=== PATIENT | female | born 1970 | race Caucasian/White ===

== ENCOUNTER → 2019-11-17 17:00 | Outpatient (BNVA) | payer MEDICARE, MEDICAID, SELFPAY | PROVIDERS: Family Provider Nurse Practitioner; PCP Nurse Practitioner; Visit Provider Nurse Practitioner | DX: E11.65 Type 2 diabetes mellitus with hyperglycemia (principal); I10 Essential (primary) hypertension; M45.9 Ankylosing spondylitis of unspecified sites in spine; J30.89 Other allergic rhinitis; M81.8 Other osteoporosis without current pathological fracture | CPT/HCPCS: 80053; 81003; 83036 ==

== ENCOUNTER → 2019-12-09 15:46 | Outpatient (BNVA) | payer MEDICARE, MEDICAID, SELFPAY | PROVIDERS: Family Provider Nurse Practitioner; PCP Nurse Practitioner; Visit Provider Internal Medicine Rheumatology | DX: M45.9 Ankylosing spondylitis of unspecified sites in spine (principal); Z79.899 Other long term (current) drug therapy; I10 Essential (primary) hypertension; E11.65 Type 2 diabetes mellitus with hyperglycemia; M19.90 Unspecified osteoarthritis, unspecified site; M06.4 Inflammatory polyarthropathy; Z79.4 Long term (current) use of insulin; K50.90 Crohn's disease, unspecified, without complications; Z87.891 Personal history of nicotine dependence; Z79.52 Long term (current) use of systemic steroids | CPT/HCPCS: 36415; 85025; 85651; 86140; 99214 ==

== ENCOUNTER → 2019-12-09 16:29 | Outpatient (BNVA) | payer MEDICARE, MEDICAID, SELFPAY | PROVIDERS: Family Provider Nurse Practitioner; PCP Nurse Practitioner; Visit Provider Internal Medicine Rheumatology | DX: I10 Essential (primary) hypertension (principal); E11.65 Type 2 diabetes mellitus with hyperglycemia; M19.90 Unspecified osteoarthritis, unspecified site; M45.9 Ankylosing spondylitis of unspecified sites in spine; Z51.81 Encounter for therapeutic drug level monitoring; M06.4 Inflammatory polyarthropathy; Z09 Encounter for follow-up examination after completed treatment for conditions other than malignant neoplasm; K50.90 Crohn's disease, unspecified, without complications | CPT/HCPCS: 85025 ==

== ENCOUNTER → 2020-05-17 14:28 | Outpatient (BNVA) | payer MEDICARE, MEDICAID, SELFPAY | PROVIDERS: Family Provider Nurse Practitioner; PCP Nurse Practitioner; Visit Provider Internal Medicine Rheumatology | DX: Z79.899 Other long term (current) drug therapy (principal) | CPT/HCPCS: 36415; 80076; 82565; 85025; 85651; 86140 ==

== ENCOUNTER → 2020-05-25 17:21 | Outpatient (BNVA) | payer MEDICARE, MEDICAID, SELFPAY | PROVIDERS: Family Provider Nurse Practitioner; PCP Nurse Practitioner; Visit Provider Nurse Practitioner | DX: E11.65 Type 2 diabetes mellitus with hyperglycemia (principal); Z79.4 Long term (current) use of insulin; J30.89 Other allergic rhinitis; M45.9 Ankylosing spondylitis of unspecified sites in spine; M81.8 Other osteoporosis without current pathological fracture; I10 Essential (primary) hypertension; E55.9 Vitamin D deficiency, unspecified; M51.36 Other intervertebral disc degeneration, lumbar region; K50.919 Crohn's disease, unspecified, with unspecified complications; T38.0X5A Adverse effect of glucocorticoids and synthetic analogues, initial encounter | CPT/HCPCS: 80053; 81000; 82043; 82306; 82310; 83036; 83970; 84439; 84443; 84481 ==

== ENCOUNTER → 2020-05-26 14:32 | Outpatient (BNVA) | payer MEDICARE, MEDICAID, SELFPAY | PROVIDERS: Family Provider Nurse Practitioner; PCP Nurse Practitioner; Visit Provider Internal Medicine Cardiovascular Disease | DX: I10 Essential (primary) hypertension (principal); R07.9 Chest pain, unspecified | CPT/HCPCS: 83880 ==

== ENCOUNTER → 2020-06-02 13:52 | Outpatient (BNVA) | payer MEDICARE, MEDICAID, SELFPAY | PROVIDERS: Family Provider Nurse Practitioner; PCP Nurse Practitioner; Visit Provider Internal Medicine | DX: E11.65 Type 2 diabetes mellitus with hyperglycemia (principal); E11.40 Type 2 diabetes mellitus with diabetic neuropathy, unspecified; E11.29 Type 2 diabetes mellitus with other diabetic kidney complication; I10 Essential (primary) hypertension; R80.9 Proteinuria, unspecified; D89.9 Disorder involving the immune mechanism, unspecified; E04.1 Nontoxic single thyroid nodule; E78.5 Hyperlipidemia, unspecified | CPT/HCPCS: 99204 ==

== ENCOUNTER → 2020-06-16 15:05 | Outpatient (BNVA) | payer MEDICARE, MEDICAID, SELFPAY | PROVIDERS: Family Provider Nurse Practitioner; PCP Nurse Practitioner; Visit Provider Internal Medicine Rheumatology | DX: M45.9 Ankylosing spondylitis of unspecified sites in spine (principal); K50.919 Crohn's disease, unspecified, with unspecified complications; Z79.899 Other long term (current) drug therapy; E11.40 Type 2 diabetes mellitus with diabetic neuropathy, unspecified; E11.65 Type 2 diabetes mellitus with hyperglycemia; Z15.89 Genetic susceptibility to other disease; Z79.4 Long term (current) use of insulin; Z79.52 Long term (current) use of systemic steroids | CPT/HCPCS: 99214 ==

== ENCOUNTER → 2020-07-20 14:55 | Outpatient (BNVA) | payer MEDICARE, MEDICAID, SELFPAY | PROVIDERS: Family Provider Nurse Practitioner; PCP Nurse Practitioner; Visit Provider Internal Medicine | DX: D89.9 Disorder involving the immune mechanism, unspecified (principal); E04.1 Nontoxic single thyroid nodule; E11.29 Type 2 diabetes mellitus with other diabetic kidney complication; E11.40 Type 2 diabetes mellitus with diabetic neuropathy, unspecified; E11.65 Type 2 diabetes mellitus with hyperglycemia; Z79.4 Long term (current) use of insulin; E78.2 Mixed hyperlipidemia; R80.9 Proteinuria, unspecified | CPT/HCPCS: 99214 ==

== ENCOUNTER → 2020-07-23 09:59 | Outpatient (BNVA) | payer MEDICARE, MEDICAID, SELFPAY ==
[2020-07-23 10:08] VITALS: BP 152/87; PULSE 79; RESP 16; TEMP 36.8; O2SAT 98
[2020-07-23] MEDS: acetaminophen 500 mg Tablet 1000 MG PO (10:14)
[2020-07-23] MEDS: diphenhydrAMINE 50 mg/mL SDV 1mL 25 MG IVP (10:35)
--- NOTE | 2020-07-23 10:49 | PC.NURSE ---
Discussed medication and increased risk of infection. pt understands risks. Verbalized concerns about reaction. Infusion started at 1048 at 125ml/hr for 15 min due to pt concern.
[2020-07-23 10:53] VITALS: BMI 40.1
--- NOTE | 2020-07-23 11:05 | PC.NURSE ---
1100 Rate increased to 175ml/hr. Pt tolerating well. Dr. Lyon came in infusion room. Met with pt.
--- NOTE | 2020-07-23 11:34 | PC.NURSE ---
1132 Infusion complete. Saline flush. Pt states she feels fine. Will continue to monitor.
[2020-07-23 11:45] VITALS: BP 144/83; PULSE 64; RESP 16; O2SAT 97
== END ==
PROVIDERS: Family Provider Nurse Practitioner; PCP Nurse Practitioner; Visit Provider Internal Medicine
DX: M45.9 Ankylosing spondylitis of unspecified sites in spine (principal)
CPT/HCPCS: 80076; 82565; 85025; 85651; 86140; 96365; 96375; J1200; J1602; J2920

== ENCOUNTER 2020-09-10 09:07 | Outpatient (CLI) | payer MEDICARE, MEDICAID, SELFPAY ==
[2020-09-10 09:18] VITALS: BP 170/90; PULSE 79; RESP 16; TEMP 36.2; O2SAT 95
[2020-09-10] MEDS: acetaminophen 500 mg Tablet 1000 MG PO (09:40)
[2020-09-10] MEDS: diphenhydrAMINE 50 mg/mL SDV 1mL 25 MG IVP (09:40)
--- NOTE | 2020-09-10 09:58 | PC.NURSE ---
labs obtained with IV start.
[2020-09-10 10:50] VITALS: BP 147/82; PULSE 65; RESP 16; O2SAT 96
== END 2020-09-10 09:08 | disposition home or self-care (01) ==
LOC: RHEOACUTE 09:08
PROVIDERS: Family Provider Nurse Practitioner; PCP Nurse Practitioner; Visit Provider Internal Medicine Rheumatology
DX: M45.9 Ankylosing spondylitis of unspecified sites in spine (principal); Z79.899 Other long term (current) drug therapy
CPT/HCPCS: 80076; 82565; 85025; 85651; 86140; 96365; 96375; J1200; J1602; J2920

== ENCOUNTER → 2020-10-07 14:49 | Outpatient (BNVA) | payer MEDICARE, MEDICAID, SELFPAY | PROVIDERS: Family Provider Nurse Practitioner; PCP Nurse Practitioner; Visit Provider Internal Medicine Rheumatology | DX: M45.9 Ankylosing spondylitis of unspecified sites in spine (principal); K50.919 Crohn's disease, unspecified, with unspecified complications; Z15.89 Genetic susceptibility to other disease; Z79.899 Other long term (current) drug therapy; Z79.52 Long term (current) use of systemic steroids; M06.4 Inflammatory polyarthropathy; Z87.891 Personal history of nicotine dependence | CPT/HCPCS: 99214 ==

== ENCOUNTER → 2020-10-19 13:58 | Outpatient (BNVA) | payer MEDICARE, MEDICAID, SELFPAY | PROVIDERS: Family Provider Nurse Practitioner; PCP Nurse Practitioner; Visit Provider Internal Medicine | DX: D89.9 Disorder involving the immune mechanism, unspecified (principal); E04.1 Nontoxic single thyroid nodule; E11.29 Type 2 diabetes mellitus with other diabetic kidney complication; R80.9 Proteinuria, unspecified; E11.40 Type 2 diabetes mellitus with diabetic neuropathy, unspecified; E11.65 Type 2 diabetes mellitus with hyperglycemia; Z79.4 Long term (current) use of insulin; E78.2 Mixed hyperlipidemia | CPT/HCPCS: 99214 ==

== ENCOUNTER 2020-10-25 07:29 | Emergency (ER) | payer MEDICARE, MEDICAID, SELFPAY ==
[2020-10-25 07:36] VITALS: BP 158/84; PULSE 85; RESP 22; TEMP 36.4; O2SAT 98; BMI 39.5
--- NOTE | 2020-10-25 07:42 | XRR_ITS ---
PROCEDURE INFORMATION: Exam: XR Chest, 1 View Exam date and time: 10/25/2020 7:58 AM Age: 49 years old Clinical indication: Shortness of breath; Chest pain; Additional info: Cp/sob TECHNIQUE: Imaging protocol: XR of the chest Views: 1 view. COMPARISON: CR Chest 2 views* [id number] 03/05/2018 2:20 PM FINDINGS: Tubes, catheters and devices: Neurostimulator wires project on the midthoracic spine. Lungs: Unremarkable. No consolidation. Pleural space: Unremarkable. No pleural effusion. No pneumothorax. Heart/Mediastinum: Unremarkable. No cardiomegaly. Bones/joints: Unremarkable. XR/XR chest 1V portable [id number] IMPRESSION: No significant cardiopulmonary abnormality.
--- NOTE | 2020-10-25 07:42 | ECG_ITS ---
[facility] Test Date: 2020-10-25 Pat Name: Estela Moise Department: Room: Gender: Female Lead Warehouse Associate: : 1970 Requested By: Mary Mejia Order Number: [id number] Lloyd MD: Akash Salvador M.D. Measurements Intervals [place] Rate: 78 P: 41 RI: 164 QRS: 18 QRSD: 75 T: 29 QT: 347 QTc: 395 Interpretive Statements SINUS RHYTHM MODERATE ST DEPRESSION [0.05+ mV ST DEPRESSION] No previous ECG available for comparison Electronically Signed On 10-25-2020 13:05:24 BUSINESS PROCESS LEAD by Akash Salvador M.D. [id number]
--- NOTE | 2020-10-25 07:56 | W.ED.CHESTPA ---
HPI - Chest Pain General: Chief Complaint: Chest Pain Stated Complaint: CHEST PAINS, SOB Time Seen by Provider: 10/25/20 07:41 Source: patient and family Mode of arrival: ambulatory Limitations: no limitations History of Present Illness: HPI narrative: 49-year-old female patient presents to the emergency department due to acute onset of chest pain that started this morning at 5 AM. She reports woke at 5 AM, got up to let the dog out, developed sudden onset of chest pain, shortness of breath. Reports pain started in the central chest radiated to the neck and to her head causing her to have a headache. She reports blood pressure at time of onset was 189/111. States on the way to the hospital, symptoms resolved, blood pressure now 158/84. She reports still has, twinge feeling in her chest, does not state as pain. She denies nausea vomiting, denies diaphoresis. States over the past few months, blood pressure medications have been changed by her interactive media marketing strategist, Dr. Kim, patient reports inability to tolerate new prescription of isosorbide secondary to headache development. Has history of chest pain with shortness of breath episodes in the past. Denies history of cardiac disease. Continues with tobacco abuse. Patient reports increased episodes of swelling by the end of the day to the lower extremities, resolves with elevation of the legs and upon awakening in the morning. States blood sugar this morning was 259. She is insulin-dependent diabetic. Positive family history of heart disease, grandparents on both sides. Lexiscan stress test completed 02/09/2017 with LVEF 79%, left ventricular volume normal, small area of persistent decreased tracer uptake in the atrial inferior wall region most likely representing attenuation artifact. [facility] is to be scheduled for outpatient stress test by cardiology test has not been completed. MD complaint: chest pain Pertinent past history: other (Hypertension) Onset (ago): day(s) (This morning) Timing of current episode: episodic and now resolved Prior episodes: Yes Onset: during exertion Pain location: substernal Pain radiation: jaw/teeth and other (Headache) Severity: moderate Pain scale (0-10): 3 Quality: heaviness and fullness Relieving factors: rest Context: new medications Associated symptoms: Reports leg edema; Deny abdominal pain, diaphoresis, dyspnea, fever(s), nausea, palpitations, syncope or vomiting Treatment prior to arrival: none Review of Systems General: Reports: 10 or more systems reviewed and unremarkable except in HPI and below Const: Denies: fever(s), chills, change in appetite, fatigue, malaise or diaphoresis Eyes: Denies: blurry vision, eye discomfort or eye redness ENMT: Denies: throat pain, uvular edema, dental pain, disequilibrium, nasal discharge or nasal congestion Card: Reports: chest pain, swelling of feet/ankles (Resolves with elevation) and lightheadedness (With onset of chest pain this morning); Denies: palpitations, irregular heart rhythm, syncope or dyspnea on exertion Resp: Denies: dyspnea, productive cough, non-productive cough or wheezing GI: Denies: abdominal pain, nausea or vomiting : Denies: difficulty voiding or dysuria Musc: Reports: neck pain (Now resolved); Denies: back pain Skin/Breast: Denies: rash or pruritus Neuro: Reports: headache(s) (Now resolved); Denies: weakness in extremities, difficulty walking, confusion or behavioral changes Psych: Denies: anxiety or depression Travis/Lymph: Denies: easy bruising PFSH ED PFSH: Medical History Allergic rhinitis due to dust Ankylosing spondylitis of unspecified sites in spine Anxiety Chronic inflammation of colon Corticosteroid-induced osteoporosis Crohn's disease Current chronic use of systemic steroids DDD (degenerative disc disease), lumbar High risk medication use HLA B27 (HLA B27 positive) HTN (hypertension) Immunization counseling Immunosuppression Type 2 diabetes mellitus with hyperglycemia Vitamin D deficiency Surgical History History of cataract surgery left 03/11/19 and right Presence of neurostimulator Family History Mother Cancer Other Diabetes Heart disease Hypercholesterolemia Hypertension Rheumatoid arthritis Stroke Denies family history of Systemic lupus erythematosus (SLE) in adult Social History Smoking and tobacco status: current some day smoker Quit status (tobacco): has tried quititng Second hand smoke exposure: No Smoking risk assessment/counseling performed?: No Alcohol intake: former Desire information about alcohol rehabilitation?: No Counseling given: No Desire information about substance/drug rehabilitation?: No Counseling given: No Adopted: No Caregiver/support person: No Lives independently: Yes Marital status: Single service: No Current occupational status: employed Pets and animals: Yes History of recent travel: No Current gender identity: Female Physical Exam Const: COMMON NORMALS: no acute distress, patient oriented x3, healthy appearing and alert GENERAL APPEARANCE: cooperative, comfortable and well hydrated HENMT: COMMON NORMALS: normocephalic, atraumatic, EAC's normal, Normal external nose present and moist oral mucous membranes HEAD & SCALP: normal to inspection, normocephalic and atraumatic FACE & SINUS: normal facial exam and face symmetric NOSE: Normal external nose present EXTERNAL AUDITORY CANAL: EAC's normal THROAT: no uvular edema Eye: COMMON NORMALS: Equal, round and reactive pupils present, EOMs intact bilaterally and conjunctivae normal GENERAL EYE: appearance normal, both eyes and all related structures PERIORBITAL: periorbital findings normal EYELID: eyelids normal CONJUNCTIVA: Yes conjunctivae normal PUPIL: Yes Equal, round and reactive pupils present Neck/C-Spine: COMMON NORMALS: full ROM and no lymphadenopathy GENERAL: Yes normal visual inspection and Yes trachea midline CERVICAL SPINE: Yes cervical ROM normal Lymph: LYMPHATIC: no lymphadenopathy noted Chest: COMMONS NORMALS: normal inspection of the chest and normal palpation of entire chest wall Resp: COMMON NORMALS: normal respiratory effort, No retractions, No use of accessory muscles and clear to auscultation bilaterally EFFORT & INSPECTION: Yes able to speak in complete sentences AUSCULTATION: clear to auscultation bilaterally Cardio: COMMON NORMALS: regular rate, regular rhythm, S1 normal heart sound present, S2 normal heart sound present and Peripheral pulses 2+ throughout PALPATION: normal PMI RATE: regular rate RHYTHM: regular rhythm HEART SOUNDS: S1 normal heart sound present and S2 normal heart sound present PERIPHERAL PULSES: Peripheral pulses 2+ throughout GI: COMMON NORMALS: Normal to inspection, nondistended, normoactive bowel sounds present, Soft to palpation and non-tender INSPECTION: Yes normal to inspection and Yes central obesity PALPATION: Yes Soft to palpation and No Firmness to palpation present (GI) : COMMON NORMALS: Yes no CVA tenderness BLADDER/KIDNEY EXAM: Yes no CVA tenderness Back/Pelvis: COMMON NORMALS: no CVA tenderness and thoracic and lumbar spine normal to inspection Extremity: COMMON NORMALS: normal to inspection and capillary refill normal Neuro: COMMON NORMALS: patient oriented x3 and no focal motor deficits SENSORIUM/ORIENTATION: Yes alert SPEECH: speech normal GAIT: Yes Normal gait present MOTOR EXAM: 5/5 motor strength present throughout Psych: COMMON NORMALS: mental status grossly normal, Normal thought process present and cooperative ACTIVITY/MOTOR BEHAVIOR: Yes appropriate eye contact THOUGHT PROCESS: Normal thought process present Skin: COMMON NORMALS: no rashes or lesions noted and turgor normal GENERAL SKIN EXAM: no rashes or lesions noted and turgor normal Course Vital Signs: Vital signs: Vital Signs Temperature 97.6 F 10/25/20 07:36 Pulse Rate 62 10/25/20 11:33 Respiratory Rate 16 10/25/20 11:33 Blood Pressure 116/57 10/25/20 11:33 Pulse Oximetry 98 10/25/20 11:33 MDM - Chest Pain MDM Narrative: Medical decision making narrative: 49-year-old female patient presents to the emergency department with episode of chest pain that occurred at 5 AM this morning. Upon arrival to the ED, pain had subsided, she could feel a slight twinge, EKG did not reveal acute abnormality, troponin series were negative for delta elevation. She has experienced chest pain in the past, prescribed isosorbide by her interactive media marketing strategist Dr. Kim, was unable to tolerate the medication secondary to headaches that occurred. Recommended to initiate isosorbide ER 30 mg daily, she threw away her old prescription. I also advised patient to take Tylenol as needed for headache as headaches are normal side effect of the medication, she verbalized understanding and is willing to take medication. I also discussed with her need to return to emergency department if she developed chest pain or other concerning symptoms. Lexiscan stress test ordered, patient be contacted with time and date I also instructed need to follow-up with her interactive media marketing strategist. She verbalized understanding. Lab Data: Labs: Lab Results 10/25/20 10/25/20 10/25/20 Range/Units 08:10 08:10 08:10 WBC 12.2 H (4.0-10.0) 10^3/ uL RBC 5.20 (4.1-5.3) 10^6/u L Hgb 14.7 (11.5-15.3) g/dL Hct 46.9 (37.0-47.0) % MCV 90.2 (81-99) fL MCH 28.3 (28.0-34.0) pg MCHC 31.3 (30.0-36.0) g/dL RDW 13.9 (12.1-15.1) % Plt Count 302 (130-400) 10^3/c mm MPV 10.6 H (7.4-10.4) fL Neut % (Auto) 68.9 % Lymph % (Auto) 22.9 % Tyrrell % (Auto) 6.0 % Eos % (Auto) 1.4 % Baso % (Auto) 0.4 % Neut # (Auto) 8.43 H (1.8-7.7) 10^3/u L Lymph # (Auto) 2.8 (0.8-4.8) 10^3/u L Tyrrell # (Auto) 0.7 (0.2-0.9) 10^3/u L Eos # (Auto) 0.2 (0.0-0.8) 10^3/u L Baso # (Auto) 0.1 (0.0-0.1) 10^3/u L Nucleated RBC % (a uto) 0 % Nucleated RBCs # 0.0 /100WBC Sodium 138 (136-145) mmol/L Potassium 4.2 (3.5-5.1) mmol/L Chloride 99 (98-107) mmol/L Carbon Dioxide 27 (22-29) mmol/L Anion Gap 16.2 (5-19) BUN 11 (6-20) mg/dL Creatinine 0.5 (0.5-0.9) mg/dL GFR Calculation 130.6 H (90-130) mL/min Glucose 194 H (65-115) mg/dL Calculated Osmolal ity 291 (285-295) mOsm/k g Calcium 9.4 (8.5-10.5) mg/dL Total Bilirubin 0.3 (0.15-1.2) mg/dL AST 11 (0-32) U/L ALT 15 (0-33) U/L Alkaline Phosphata se 86 (35-105) IU/L Troponin T Baselin e 10 (0-10) ng/L Troponin T 120 Min [place] (0-10) ng/L Delta Troponin T (0-10) ABS# NT-Pro-B Natriuret Pep 96 (0-125) pg/mL Total Protein 6.9 (6.6-8.7) g/dL Albumin 4.3 (3.5-5.2) g/dL Globulin 2.6 (1.3-4.6) g/dL Lipase 106 H (13-60) U/L //20 Range/Units 10:05 WBC (4.0-10.0) 10^3/ uL RBC (4.1-5.3) 10^6/u L Hgb (11.5-15.3) g/dL Hct (37.0-47.0) % MCV (81-99) fL MCH (28.0-34.0) pg MCHC (30.0-36.0) g/dL RDW (12.1-15.1) % Plt Count (130-400) 10^3/c mm MPV (7.4-10.4) fL Neut % (Auto) % Lymph % (Auto) % Tyrrell % (Auto) % Eos % (Auto) % Baso % (Auto) % Neut # (Auto) (1.8-7.7) 10^3/u L Lymph # (Auto) (0.8-4.8) 10^3/u L Tyrrell # (Auto) (0.2-0.9) 10^3/u L Eos # (Auto) (0.0-0.8) 10^3/u L Baso # (Auto) (0.0-0.1) 10^3/u L Nucleated RBC % (a uto) % Nucleated RBCs # /100WBC Sodium (136-145) mmol/L Potassium (3.5-5.1) mmol/L Chloride (98-107) mmol/L Carbon Dioxide (22-29) mmol/L Anion Gap (5-19) BUN (6-20) mg/dL Creatinine (0.5-0.9) mg/dL GFR Calculation (90-130) mL/min Glucose (65-115) mg/dL Calculated Osmolal ity (285-295) mOsm/k g Calcium (8.5-10.5) mg/dL Total Bilirubin (0.15-1.2) mg/dL AST (0-32) U/L ALT (0-33) U/L Alkaline Phosphata se (35-105) IU/L Troponin T Baselin e (0-10) ng/L Troponin T 120 Min [place] 10.83 H (0-10) ng/L Delta Troponin T 0.83 (0-10) ABS# NT-Pro-B Natriuret Pep (0-125) pg/mL Total Protein (6.6-8.7) g/dL Albumin (3.5-5.2) g/dL Globulin (1.3-4.6) g/dL Lipase (13-60) U/L Imaging Data^: Other Xray: Radiologist's impression: [id number] [place] [address] XRay Report Signed Patient: Estela Moise Unit #: [id number] : 1970 Age/Sex: 49 / F ADM Date: 10/25/20 Loc: ER Room/Bed: Attending Dr: Ordering Provider/Ordering MD: Mary Medina Date of Service: 10/25/20 Procedure(s): XR chest 1V portable [id number] Accession Number(s): [id number] Report Number: [id number] PROCEDURE INFORMATION: Exam: XR Chest, 1 View Exam date and time: 10/25/2020 7:58 AM Age: 49 years old Clinical indication: Shortness of breath; Chest pain; Additional info: Cp/sob TECHNIQUE: Imaging protocol: XR of the chest Views: 1 view. COMPARISON: CR Chest 2 views* [id number] 03/05/2018 2:20 PM FINDINGS: Tubes, catheters and devices: Neurostimulator wires project on the midthoracic spine. Lungs: Unremarkable. No consolidation. Pleural space: Unremarkable. No pleural effusion. No pneumothorax. Heart/Mediastinum: Unremarkable. No cardiomegaly. Bones/joints: Unremarkable. XR/XR chest 1V portable [id number] IMPRESSION: No significant cardiopulmonary abnormality. Dictated By: Erickson Pollard Signed By: Erickson Pollard Signed Date/Time: 10/25/20907 DD/ 6 Discharge Plan Discharge Patient Disposition: Home Clinical Impression: Chest pain on exertion HTN (hypertension) Qualifiers: Hypertension type: essential hypertension Qualified Code(s): I10 - Essential (primary) hypertension Condition: Stable Prescriptions: New isosorbide mononitrate 30 mg tablet extended release 24 hr 30 mg PO DAILY Qty: 20 RF: 0 No Action Lumigan 0.01 % drops 1 drop ophthalmic (eye) DAILY@1999 RF: 0 furosemide 20 mg tablet 20 mg PO DAILY@0900 RF: 0 tizanidine 4 mg capsule 4 mg PO TID PRN (Reason: muscle spasms) RF: 0 (DME) pen needle, diabetic [Advocate Pen Needle] 31 gauge x 5/16 needle See Rx Instructions .ROUTE .MEDSUPPLY Qty: 200 RF: 5 (DME) blood sugar diagnostic [Jogguch Ultra Blue Test Strip] Strip See Rx Instructions .ROUTE .MEDSUPPLY Qty: 100 RF: 5 insulin aspart U-100 [Novolog Flexpen U-100 Insulin] 100 unit/mL (3 mL) insulin pen 20 unit SUBCUT BID@0900,2100 RF: 0 (DME) FreeStyle Hanna 14 Day [place] Misc See Rx Instructions .ROUTE .MEDSUPPLY Qty: 1 RF: 0 (DME) FreeStyle Hanna 14 Day Sensor Kit See Rx Instructions .ROUTE .MEDSUPPLY Qty: 6 RF: 1 albuterol sulfate [Ventolin HFA] 90 mcg/actuation HFA aerosol inhaler 2 puff INHALATION Q4H PRN (Reason: shortness of breath or wheezing) Qty: 18 RF: 2 alendronate [Fosamax] 70 mg tablet 70 mg PO .weekly Qty: 4 RF: 2 Ozempic 0.25 mg or 0.5 mg(2 mg/1.5 mL) pen injector 0.5 mg SUBCUT .weekly Qty: 1.5 RF: 2 Celebrex 200 mg capsule 200 mg PO BID@,21 RF: 0 Lipitor 20 mg tablet 20 mg PO DAILY@1999 RF: 0 Toprol XL 100 mg tablet extended release 24 hr 150 mg PO DAILY@0900 RF: 0 prednisone 5 mg tablet 15 mg PO BID@1000,1700 RF: 0 pantoprazole 40 mg tablet,delayed release (DR/EC) 40 mg PO DAILY@0900 RF: 0 gabapentin 300 mg capsule 300 mg PO TID@09,12,21 RF: 0 folic acid 1 mg tablet 1 mg PO DAILY@0900 RF: 0 losartan 100 mg tablet 100 mg PO DAILY@2100 RF: 0 fluticasone propionate 50 mcg/actuation spray,suspension 2 spray INTRANASAL DAILY@0900 RF: 0 Janumet XR 50-1,000 mg tablet, ER multiphase 24 hr 2 tab PO DAILY@0900 RF: 0 Tresiba FlexTouch U-200 200 unit/mL (3 mL) insulin pen 120 unit SUBCUT DAILY@0900 RF: 0 Simponi ARIA 12.5 mg/mL Solution See Rx Instructions .ROUTE .COMPLEX RF: 0 Vitamin C 1,000 mg Tablet 1,000 mg PO BID@0900,2100 RF: 0 Discharge Orders: Discharge ED (Routine); Ordered 10/25/20 Ordered By: Mary Medina Referrals: Chas Brown, KYARA [Primary Care Provider] - Discharge Diet: Cardiac Discharge Activity: Resume usual activity Patient Instructions: Chest Pain (ED), Chronic Hypertension (ED) Activity Restrictions/Additional Instructions: Return to the emergency department if you develop chest pain, or additional symptoms that occurred today, Take Imdur as prescribed, headache will occur, may take Tylenol as needed for pain, you will build up tolerance within the next 2 weeks and headache will improve Outpatient stress test has been ordered, rn social services will be contacting you with an appointment for your stress test and follow-up appointment with Dr. Kim Continue aspirin daily Coding Level of Care Code ED Top Installer for Jennifer Fwephraim Exam Comprehensive
[2020-10-25 08:14] VITALS: BP 132/79; PULSE 78; RESP 17; O2SAT 97
[2020-10-25 08:15] VITALS: BP 134/82; PULSE 70; RESP 18; O2SAT 97
[2020-10-25 08:26] LABS: Basophils # 0.1 10^3/uL (0.0-0.1); Basophils % 0.4 %; Eosinophils # 0.2 10^3/uL (0.0-0.8); Eosinophils % 1.4 %; Hematocrit 46.9 % (37.0-47.0); Hemoglobin 14.7 g/dL (11.5-15.3); Lymphocytes # 2.8 10^3/uL (0.8-4.8); Lymphocytes % 22.9 %; Mean Corpuscular HGB Conc 31.3 g/dL (30.0-36.0); Mean Corpuscular Hemoglobin 28.3 pg (28.0-34.0); Mean Corpuscular Volume 90.2 fL (81-99); Mean Platelet Volume 10.6 fL (7.4-10.4); Monocytes # 0.7 10^3/uL (0.2-0.9); Neutrophils # 8.43 10^3/uL (1.8-7.7); Neutrophils % 68.9 %; Nucleated Red Blood Cells % 0 %; Platelet Count 302 10^3/cmm (130-400); Red Cell Distribution Width 13.9 % (12.1-15.1); White Blood Count 12.2 10^3/uL (4.0-10.0)
[2020-10-25] MEDS: aspirin 325 mg Tablet PO (08:33)
[2020-10-25 08:55] LABS: Troponin(5th) Baseline 10 ng/L (0-10)
[2020-10-25 09:03] LABS: Alanine Aminotransferase 15 U/L (0-33); Albumin Level 4.3 g/dL (3.5-5.2); Alkaline Phosphatase 86 IU/L (35-105); Anion Gap 16.2 (5-19); Aspartate Amino Transferase 11 U/L (0-32); Blood Urea Nitrogen 11 mg/dL (6-20); Calcium 9.4 mg/dL (8.5-10.5); Carbon Dioxide 27 mmol/L (22-29); Chloride 99 mmol/L (98-107); Globulin 2.6 g/dL (1.3-4.6); Glomerular Filtration Rate 130.6 mL/min (90-130); Glucose 194 mg/dL (65-115); Lipase 106 U/L (13-60); NT Pro B Type Natriuretic Pept 96 pg/mL (0-125); Osmolality Calculated 291 mOsm/kg (285-295); Potassium 4.2 mmol/L (3.5-5.1); Sodium 138 mmol/L (136-145); Total Bilirubin 0.3 mg/dL (0.15-1.2); Total Protein 6.9 g/dL (6.6-8.7)
--- NOTE | 2020-10-25 09:42 | ECG_ITS ---
[facility] Test Date: 2020-10-25 Pat Name: Estela Moise Department: Room: Gender: Female Foreign Language Instructor: : 1970 Requested By: Mary Mejia Order Number: [id number] Desai MD: Akash Salvador M.D. Measurements Intervals [place] Rate: 64 P: 37 AR: 138 QRS: 23 QRSD: 89 T: 17 QT: 383 QTc: 395 Interpretive Statements SINUS RHYTHM Compared to ECG 10/25/2020 07:50:01 ST (T wave) deviation no longer present Electronically Signed On 10-25-2020 17:00:20 WINEMAKER by Akash Salvador M.D. [id number]
[2020-10-25 10:41] LABS: Troponin 5 2HR 10.83 ng/L (0-10); Troponin 5 2HR Delta 0.83 ABS# (0-10)
[2020-10-25 11:33] VITALS: BP 116/57; PULSE 62; RESP 16; O2SAT 98
--- NOTE | 2020-10-25 15:47 | DCPLANNER ---
sawmill manager had message to schedule an out patient stress test for patient. sawmill manager faxed order to centralized scheduling. After stress test is ordered, director of casework will schedule a followup appointment for patient with heart care with Dr. Metcalf.
--- NOTE | 2020-10-26 13:14 | DCPLANNER ---
pig farm manager called [facility], spoke with [place], a follow up appointment was scheduled for October at 10:[address] Metcalf. pig farm manager called patient with appointment information. Patient stated that she would attend the appointment.
--- NOTE | 2020-11-09 08:39 | DCPLANNER ---
Patient has an out patient stress test scheduled for Monday, November 16, 2020 at 1:00.
--- NOTE | 2020-11-30 09:14 | DCPLANNER ---
Patient had a stress test scheduled for 11.16.20 - patient did attend [facility] had an appointment with [facility] on 11.25.20 - patient did attend appointment.
== END 2020-10-25 11:48 | disposition home or self-care (01) ==
PROVIDERS: Emergency Provider Nurse Practitioner Family; PCP Nurse Practitioner
DX: I10 Essential (primary) hypertension (principal); R07.89 Other chest pain; Z79.4 Long term (current) use of insulin; E11.9 Type 2 diabetes mellitus without complications; F17.210 Nicotine dependence, cigarettes, uncomplicated
CPT/HCPCS: 12345; 36415; 71045; 80053; 83690; 83880; 84484; 85025; 93005; 99282; 99283

== ENCOUNTER 2020-11-08 09:01 | Outpatient (CLI) | payer MEDICARE, MEDICAID, SELFPAY ==
[2020-11-08 09:00] VITALS: BP 181/100; PULSE 72; RESP 16; TEMP 36.4; O2SAT 97
--- NOTE | 2020-11-08 09:13 | PC.NURSE ---
States BP has been running high. Went to ER 10/25/20 for CP and high BP. States having stress test 11/16/20 and seeing door to door fundraising collector 11/25/20. States has not had any sleep. Denies CP, dizziness, or TOBIN. States they put her on isosorbide but she cannot tolerate it.
[2020-11-08 09:17] VITALS: BP 143/84; PULSE 66; RESP 16
[2020-11-08] MEDS: acetaminophen 500 mg Tablet 1000 MG PO (09:22)
[2020-11-08] MEDS: diphenhydrAMINE 50 mg/mL SDV 1mL 25 MG IVP (09:49)
[2020-11-08 10:44] VITALS: BMI 38.7
[2020-11-08 11:52] VITALS: BP 129/79; PULSE 61; RESP 16; O2SAT 96
== END 2020-11-08 09:02 | disposition home or self-care (01) ==
LOC: RHEOACUTE 09:03
PROVIDERS: PCP Nurse Practitioner; Visit Provider Internal Medicine Rheumatology
DX: M45.9 Ankylosing spondylitis of unspecified sites in spine (principal); E04.1 Nontoxic single thyroid nodule; E11.29 Type 2 diabetes mellitus with other diabetic kidney complication; E11.40 Type 2 diabetes mellitus with diabetic neuropathy, unspecified; E11.65 Type 2 diabetes mellitus with hyperglycemia; Z79.4 Long term (current) use of insulin; E78.2 Mixed hyperlipidemia; R80.9 Proteinuria, unspecified
CPT/HCPCS: 80061; 82044; 83036; 84439; 84443; 96365; 96375; J1200; J1602; J2920

== ENCOUNTER 2020-11-16 10:37 | Outpatient (CLI) | payer MEDICARE, MEDICAID, SELFPAY ==
[2020-11-16 10:52] VITALS: BMI 39.5
--- NOTE | 2020-11-16 10:54 | ECG_ITS ---
[facility] Test Date: 2020-11-16 Pat Name: Estela Moise Department: Room: Gender: Female Audience Coordinator: : 1970 Requested By: Mary Mejia Order Number: [id number] Lloyd MD: SCOTT FERRER Interpretive Statements NAME OF STUDY: LEXISCAN SESTAMIBI STRESS TEST INDICATION: Chest Pain; HTN RESULTS TO DR SOLANO AND FOX BERKOWITZ NOTE: Please note that this is the electrocardiogram portion of the Lexiscan/Sestamibi stress test. The perfusion scan will be documented separately. DATA: Baseline heart rate was 70 beats per minute. Baseline blood pressure was 154/89 millimeters of mercury. Target heart rate was 170. Maximum heart rate achieved was 88. which was 51 % of the predicted target heart rate. Maximum blood pressure was 155/89 millimeters of mercury. The reason for ending the test was completion of the protocol. The patient did not experience any symptoms. ELECTROCARDIOGRAM: BASELINE: Sinus rhythm. Normal axis. Otherwise, no ST-T changes suggestive of ischemia noted. No arrhythmia noted. EXERCISE: After Lexiscan injection, no ST-T changes suggestive of ischemic noted. No arrhythmia noted. 1. EKG not suggestive of ischemia 2. Lexiscan injection unremarkable. 3. Perfusion scan will be documented separately. Electronically Signed On 11-16-2020 17:58:55 CERTIFIED ALCOHOL DRUG COUNSELOR by SCOTT FERRER [id number]
--- NOTE | 2020-11-16 10:56 | NMCV_ITS ---
NM chai perf SPECT r/s* [id number] Estela Moise Age: 49 Gender: F : 1970 Exam Date: 11/16/2020 10:56 Ordering Phys: Mary Medina Technologist: LUI Trevino Exam Location: [facility] Indications: Chest pain STRESS TEST Please see separate stress test report in [facility] for full findings IMAGE PROTOCOL Rest/Stress 1 Lexiscan Day Radiopharmaceutical Dose (mCi) Administration Site Administered by Rest: Tc-99m 10.7 IV LUI Trevino Sestamibi Stress:Tc-99m 33.0 IV LUI Parker Sestamibi Rest: 16-Nov-2020 60 Discovery 630 Stress: 16-Nov-2020 45 Discovery 630 0.4mg Lexiscan. Supine position only as patient was unable to lay prone. SPECT RESULTS Technical Quality: Good Raw Data Analysis: Normal Image Corrections: No attenuation or motion correction applied Summed Stress Score: 2 Summed Rest Score: 2 Summed Difference Score: 0 PERFUSION FINDINGS SPECT images demonstrate homogeneous tracer distribution throughout the myocardium. FUNCTIONAL RESULTS (calculated via Gated SPECT) Stress Image LV EF (%): 70 Stress EDV (mL):122 TID: 1.06 Stress ESV (mL):36 Rest Image LV EF (%): 70 FUNCTIONAL FINDINGS: There is normal left ventricular systolic function. IMPRESSIONS Myocardial perfusion imaging is normal low probability for obstructive coronary disease. EKG segment will be documented separately. Abdirahman Mayberry MD (Electronically Signed) Final Date: 16 November 2020 17:47 S
--- NOTE | 2020-11-16 12:40 | SUR.PREOP ---
Patient reports no pain or discomfort prior to the start of the procedure.
[2020-11-16] MEDS: regadenoson 0.4 Mg/5 ml Syringe IVP (12:42)
[2020-11-16 12:55] VITALS: BP 138/84; PULSE 83
== END 2020-11-16 10:38 | disposition home or self-care (01) ==
LOC: CDL 10:39
PROVIDERS: PCP Nurse Practitioner; Visit Provider Nurse Practitioner Family
DX: R07.9 Chest pain, unspecified (principal); I10 Essential (primary) hypertension
CPT/HCPCS: 78452; 93017; A9500; J2785

== ENCOUNTER 2021-01-03 13:41 | Outpatient (CLI) | payer MEDICARE, MEDICAID, SELFPAY ==
[2021-01-03] MEDS: acetaminophen 500 mg Tablet 1000 MG PO (13:55)
[2021-01-03 14:00] VITALS: BP 150/78; BP 161/82; PULSE 67; PULSE 77; RESP 16; TEMP 36.3; TEMP 36.6; O2SAT 97
[2021-01-03] MEDS: diphenhydrAMINE 50 mg/mL SDV 1mL 25 MG IVP (14:00)
[2021-01-03] MEDS: sodium chloride 0.9% (100 ml) 100 ML 400 ML (14:00)
--- NOTE | 2021-01-04 11:23 | PC.NURSE ---
Due to an administrative issue we are doing a late entry for clarity of the medical record. The infusion case was routine and the approximate stop time was 1448 based upon the start time of 1418.
== END 2021-01-03 13:42 | disposition home or self-care (01) ==
PROVIDERS: PCP Nurse Practitioner; Visit Provider Internal Medicine Rheumatology
DX: M45.9 Ankylosing spondylitis of unspecified sites in spine (principal)
CPT/HCPCS: 96365; 96375; J1200; J1602; J2930

== ENCOUNTER → 2021-01-18 14:21 | Outpatient (BNVA) | payer MEDICARE, MEDICAID, SELFPAY | PROVIDERS: PCP Nurse Practitioner; Visit Provider Internal Medicine | DX: D89.9 Disorder involving the immune mechanism, unspecified (principal); E04.1 Nontoxic single thyroid nodule; E11.29 Type 2 diabetes mellitus with other diabetic kidney complication; R80.9 Proteinuria, unspecified; E11.40 Type 2 diabetes mellitus with diabetic neuropathy, unspecified; E11.65 Type 2 diabetes mellitus with hyperglycemia; E78.2 Mixed hyperlipidemia; R74.8 Abnormal levels of other serum enzymes | CPT/HCPCS: 99214 ==

== ENCOUNTER → 2021-02-03 12:59 | Outpatient (BNVA) | payer MEDICARE, MEDICAID, SELFPAY | PROVIDERS: PCP Nurse Practitioner; Visit Provider Internal Medicine Rheumatology | DX: M45.9 Ankylosing spondylitis of unspecified sites in spine (principal); Z79.899 Other long term (current) drug therapy | CPT/HCPCS: 36415; 80076; 82565; 83690; 85025; 86140 ==

== ENCOUNTER → 2021-02-09 15:16 | Outpatient (BNVA) | payer MEDICARE, MEDICAID, SELFPAY | PROVIDERS: PCP Nurse Practitioner; Visit Provider Internal Medicine Rheumatology | DX: M45.9 Ankylosing spondylitis of unspecified sites in spine (principal); Z15.89 Genetic susceptibility to other disease; M25.561 Pain in right knee; M25.551 Pain in right hip; Z79.899 Other long term (current) drug therapy; Z79.52 Long term (current) use of systemic steroids; K50.90 Crohn's disease, unspecified, without complications; E11.65 Type 2 diabetes mellitus with hyperglycemia; Z79.4 Long term (current) use of insulin; F17.210 Nicotine dependence, cigarettes, uncomplicated | CPT/HCPCS: 99214 ==

== ENCOUNTER → 2021-02-11 10:48 | Outpatient (BNVA) | payer MEDICARE, MEDICAID, SELFPAY | PROVIDERS: PCP Nurse Practitioner; Visit Provider Nurse Practitioner | DX: E11.65 Type 2 diabetes mellitus with hyperglycemia (principal); Z79.4 Long term (current) use of insulin | CPT/HCPCS: 81000; 85025 ==

== ENCOUNTER → 2021-02-24 14:27 | Outpatient (BNVA) | payer OTHER, MEDICAID, SELFPAY | PROVIDERS: PCP Nurse Practitioner; Visit Provider Nurse Practitioner | DX: K85.90 Acute pancreatitis without necrosis or infection, unspecified (principal); R74.8 Abnormal levels of other serum enzymes; I10 Essential (primary) hypertension; E11.65 Type 2 diabetes mellitus with hyperglycemia; Z79.4 Long term (current) use of insulin; F41.9 Anxiety disorder, unspecified | CPT/HCPCS: 80053; 83690; 85025 ==

== ENCOUNTER 2021-02-28 14:16 | Outpatient (CLI) | payer MEDICARE, MEDICAID, SELFPAY ==
[2021-02-28 14:52] VITALS: BP 139/74; PULSE 67; RESP 16; TEMP 36.7; O2SAT 95
[2021-02-28] MEDS: acetaminophen 500 mg Tablet 1000 MG PO (14:56)
[2021-02-28] MEDS: diphenhydrAMINE 50 mg/mL SDV 1mL 25 MG IVP (14:58)
[2021-02-28] MEDS: sodium chloride 0.9% 250 ML 125 ML IV (15:00)
[2021-02-28 15:41] VITALS: BP 141/74; PULSE 63; RESP 18; TEMP 36.6; O2SAT 94
== END 2021-02-28 14:17 | disposition home or self-care (01) ==
PROVIDERS: PCP Nurse Practitioner; Visit Provider Internal Medicine Rheumatology
DX: M45.9 Ankylosing spondylitis of unspecified sites in spine (principal)
CPT/HCPCS: 96365; 96375; J1200; J1602; J2920; J7050

== ENCOUNTER 2021-03-09 12:00 | Outpatient (CLI) | payer MEDICARE, MEDICAID, SELFPAY | END 2021-03-09 12:01 | disposition home or self-care (01) | LOC: SLEEP 03-10 10:45 | PROVIDERS: PCP Nurse Practitioner; Visit Provider Internal Medicine Cardiovascular Disease | DX: G47.10 Hypersomnia, unspecified (principal) | CPT/HCPCS: G0399 ==

== ENCOUNTER 2021-03-14 09:28 | Outpatient (CLI) | payer MEDICARE, MEDICAID, SELFPAY ==
--- NOTE | 2021-03-14 09:30 | US_ITS ---
WS: [id number] ULTRASOUND ABDOMEN CLINICAL INFORMATION: E11.65 - Type 2 diabetes mellitus with hyperglycemia COMPARISON: None. FINDINGS: Liver Size: Normal. Craniocaudal length: 15.5 cm. Echogenicity: Normal. Surface nodularity: None. Mass (size and location): None. Bile ducts Intrahepatic ducts: Normal. Common bile duct diameter: 0.4 cm. Gallbladder Normal. Gallstones: None. Gallbladder sludge: None. Gallbladder wall thickening: None. Pericholecystic fluid: None. Sonographic Strauss sign: Absent. Pancreas Normal as visualized. Spleen Splenomegaly: None. Craniocaudal length: 9.5 cm. Right kidney: Normal. Hydronephrosis: None. Size: 12.9 cm x 7.7 cm x 6.3 cm Left kidney: Normal. Hydronephrosis: None. Size: 11.5 cm x 6.6 cm x 5.0 cm. Abdominal aorta and IVC Visualized portions are normal. Ascites: None. US/US abdomen complete* [id number] IMPRESSION: Normal abdominal ultrasound
== END 2021-03-14 09:29 | disposition home or self-care (01) ==
LOC: RAD 09:34
PROVIDERS: PCP Nurse Practitioner; Visit Provider Nurse Practitioner
DX: E11.65 Type 2 diabetes mellitus with hyperglycemia (principal); Z79.4 Long term (current) use of insulin
CPT/HCPCS: 76700

== ENCOUNTER → 2021-03-29 15:08 | Outpatient (BNVA) | payer MEDICARE, MEDICAID, SELFPAY | PROVIDERS: PCP Nurse Practitioner; Visit Provider Nurse Practitioner | DX: E11.65 Type 2 diabetes mellitus with hyperglycemia (principal); R06.02 Shortness of breath; E78.2 Mixed hyperlipidemia; Z79.4 Long term (current) use of insulin | CPT/HCPCS: 80053; 82150; 83690; 83880; 85025 ==

== ENCOUNTER → 2021-04-21 13:46 | Outpatient (BNVA) | payer MEDICARE, MEDICAID, SELFPAY | PROVIDERS: PCP Nurse Practitioner; Visit Provider Internal Medicine Rheumatology | DX: M45.9 Ankylosing spondylitis of unspecified sites in spine (principal); Z15.89 Genetic susceptibility to other disease; K50.919 Crohn's disease, unspecified, with unspecified complications; Z79.52 Long term (current) use of systemic steroids; F17.210 Nicotine dependence, cigarettes, uncomplicated | CPT/HCPCS: 99214 ==

== ENCOUNTER 2021-05-11 14:45 | Outpatient (CLI) | payer MEDICARE, MEDICAID, SELFPAY ==
--- NOTE | 2021-05-11 15:00 | USCV_ITS ---
Jose Maria Estela Age: 50 Gender: F : 1970 Exam Date: 05/11/2021 15:12 Ordering Phys: Chas Brown Technologist: Karon Goodson Exam Location: [facility] Indication: Essential primary hypertension BP: 155 / 102 HR: 75 Rhythm: Sinus Technical Quality: Adequate MEASUREMENTS (Male / Female) Normal Values 2D ECHO LV Diastolic Diameter PLAX 3.8 cm 4.2 - 5.9 / 3.9 - 5.3 cm LV Systolic Diameter PLAX 2.7 cm IVS Diastolic Thickness 1.7 cm 0.6 - 1.0 / 0.6 - 0.9 cm IVS Systolic Thickness 2.1 cm LVPW Diastolic Thickness 1.8 cm 0.6 - 1.0 / 0.6 - 0.9 cm LVPW Systolic Thickness 2.4 cm LVOT Diameter 2.0 cm LV Ejection Fraction 2D Teich 56.7 % LV Ejection Fraction MOD 2C 30.4 % LV Ejection Fraction 2C AL 31.7 % LA Diameter 3.4 cm LA Width 3.5 cm LA Height 4.7 cm RA Width 3.7 cm RA Height 4.5 cm Aorta at Sinotubular Diameter 2.5 cm M-MODE Aortic Annulus Diameter 2.5 cm LA Ao Ratio MM 1.5 MV E Point Septal Separation 0.6 cm DOPPLER AV Peak Velocity 192.0 cm/s LVOT Peak Velocity 117.0 cm/s AV Area Cont Eq vti 2.0 cm squared AV Area Cont Eq pk 1.9 cm squared MV Area PHT 2.9 cm squared Mitral E to A Ratio 0.8 MV E' Velocity 40.5 cm/s Mitral E to MV E' Ratio 12.1 Mitral E to LV E' Lateral Ratio 14.6 Mitral E to LV E' Septal Ratio 10.3 TR Peak Velocity 253.7 cm/s TR Peak Gradient 25.7 mmHg TV Peak E Velocity 45.0 cm/s Right Atrial Pressure 3.0 mmHg Pulmonary Artery Systolic Pressu 28.7 mmHg PV Peak Velocity 103.0 cm/s RV Acceleration Time 0.1 s RV Ejection Time 0.3 s RV AcT/ET 0.3 FINDINGS Left Ventricle Normal left ventricular cavity size. Increased left ventricular wall thickness. Moderate concentric left ventricular hypertrophy. Normal left ventricular systolic function. Left ventricular ejection fraction is estimated at 70 %. No regional wall motion abnormalities. Grade I diastolic dysfunction (abnormal relaxation filling pattern), normal to mildly elevated filling pressures. Right Ventricle Normal right ventricular size and systolic function. Normal right ventricular systolic function. Right Atrium Normal right atrial size. Right atrial pressure estimated at 3 mm Hg. Left Atrium Normal left atrial size. Mitral Valve Thickened mitral valve. No mitral valve stenosis. No mitral valve regurgitation. Aortic Valve Structurally normal trileaflet aortic valve. No aortic valve stenosis. No aortic valve regurgitation. Tricuspid Valve Tricuspid valve not well visualized. Trace tricuspid valve regurgitation. Pulmonic Valve Pulmonic valve not well visualized. No pulmonary valve stenosis. No pulmonary valve regurgitation. Pericardium No pericardial effusion. Aorta Normal size aortic root and proximal ascending aorta. Normal- sized inferior vena cava. CONCLUSIONS 1. Normal left ventricular cavity size. Increased left ventricular wall thickness. Moderate concentric left ventricular hypertrophy. Normal left ventricular systolic function. Left ventricular ejection fraction is estimated at 70 %. No regional wall motion abnormalities. Grade I diastolic dysfunction (abnormal relaxation filling pattern), normal to mildly elevated filling pressures. 2. Normal right ventricular size and systolic function. 3. No significant valvular normality. 4. Right atrial pressure estimated at 3 mm Hg. 5. No pericardial effusion. 6. No prior similar studies to compare. Catina Metcalf MD (Electronically Signed) Final Date: 13 May 2021 12:54 S
== END 2021-05-11 14:46 | disposition home or self-care (01) ==
LOC: RAD 14:49
PROVIDERS: PCP Nurse Practitioner; Visit Provider Nurse Practitioner
DX: I10 Essential (primary) hypertension (principal)
CPT/HCPCS: 93306

== ENCOUNTER → 2021-06-13 16:58 | Outpatient (BNVA) | payer MEDICARE, MEDICAID, SELFPAY | PROVIDERS: PCP Nurse Practitioner; Visit Provider Nurse Practitioner | DX: I10 Essential (primary) hypertension (principal); F17.200 Nicotine dependence, unspecified, uncomplicated; F41.9 Anxiety disorder, unspecified | CPT/HCPCS: 80048; 85025 ==

== ENCOUNTER → 2021-06-27 10:40 | Outpatient (BNVA) | payer MEDICARE, MEDICAID, SELFPAY | PROVIDERS: PCP Nurse Practitioner; Referring Provider Internal Medicine Cardiovascular Disease; Visit Provider Internal Medicine Cardiovascular Disease | DX: Z01.818 Encounter for other preprocedural examination (principal); R06.00 Dyspnea, unspecified; R07.9 Chest pain, unspecified; Z20.822 Contact with and (suspected) exposure to COVID-19 | CPT/HCPCS: 80048; 85025; 85610; 87635 ==

== ENCOUNTER 2021-06-30 07:43 | Outpatient (CLI) | payer MEDICARE, MEDICAID, SELFPAY ==
[2021-06-30] VITALS (18 sets, daily range): BP systolic 137–164; BP diastolic 70–91; PULSE 75–88; RESP 13–23; TEMP 36.1; O2SAT 88–96; BMI 40.3
--- NOTE | 2021-06-30 07:30 | XACV_ITS ---
Exam Room: 1 Ht: 168 cm Wt: 113 kg BSA: 2.35 m2 Gender: Female : 1970 Any Known Allergies: Other Exam Priority: Routine Procedure(s): Procedure Description: Diagnostic procedure Procedure Description: Left Heart Catheterization Procedure Description: Left ventriculography Procedure Description: Coronary Angiography Diagnostic Cath Status: Elective Diagnostic Findings * Left Main has no disease. * Circumflex has no disease. * Right Coronary Artery has no disease. * Mid Left Anterior Descending: luminal irregularities 20% stenosis, RIYA: 3 flow. * Coronary angiography shows right dominance. Conclusions 1. There is luminal irregularities coronary artery disease with one vessel disease. 2. All jones are normal. 3. Hyperdynamic left ventricular systolic function. Ejection fraction of 70%. Recommendations * Continue current medical management and risk factor modification. Ventriculography Ejection Fraction: 70.0 % Left Ventriculography Findings: * Hyperdynamic left ventricular ejection fraction. Pressures Phase:Rest AO : 134 / 64 ( 83 ) @ 8:21:00 AM 116 / 80 ( 97 ) @ 8:25:00 AM 165 / 43 ( 88 ) @ 8:31:00 AM LV : 164 / 0 / 19 @ 8:30:00 AM 164 / -1 / 14 @ 8:31:00 AM 169 / 11 / 35 @ 8:31:00 AM Clinical Evaluation EBL: 5mL-10mL Procedural Details Procedure Consent Obtained. Current Diagnosis : Chest Pain. Pre-Procedure Time Out. Identified patient by full name and date of as verbalized by the patient/guarantor. Does the consent match the physician's order: Yes. Accurate & Complete Informed Consent: Yes. Inpatient/Outpatient History & Physical on Chart: Yes. If H&P is completed, is and addenduem needed: Yes; If yes, is the addendum complete: Yes. Visualize and Verify Site with Patient/Guarantor: N/A. Relevant Radiology Images available: Yes. Pre-op teaching completed and patient verbalized understanding. The risks, benefits, and alternatives of sedation and/or procedure were discussed by physician. The patient agrees to continue. Procedure started. [facility] Clinical Fraility Score: 3: Managing Well. Supervisor Publications Indications: Worsening Angina. Chest Pain Symptom Assessment: Typical Angina Symptoms. Correct patient, site and procedure confirmed by cath team. Current diagnosis: Chest Pain. PERRLA. Strong, equal hand dish machine operator bilaterally. Lungs clear x 5 lobes. IV Site on Arrival: 20 gauge in the left anticubital. IV Fluids: 0.9% NaCl at KVO. 0 mL infused prior to tender labor. Pre Procedural Pulses: bilateral dorsalis pedis was 3+. Pre Procedural Pulses: bilateral posterior tibial was 3+. Pre Procedural Pulses: bilateral radial was 3+. Oxygen started at 2liters/min via nasal canula. right groin was prepped with chloroprep then draped in the usual sterile fashion. right radial was prepped with chloroprep then draped in the usual sterile fashion. Baseline sample Acquired. HR: 81 BPM. Physician notified. Physician arrived. Lakshmi Kaiser RN circulating and Lee De Guzman scrubbing. Physician scrubbed in. Immediate Pre-Procedure Time Out. Correct Patient: Yes; Correct Procedure: Yes; Correct Site: Yes; Correct Patient Position: Yes; Correct Supplies: Yes; Dried Flammable Prep: Yes; Blood Products Available: N/A;. Lidocaine 1% infiltrated to the right radial. Arterial access obtained. A 5 omani Jimmie catheter in over wire. Multiple views taken of left coronary artery. Catheter redirected to the RCA. Multiple views taken of right coronary artery. Catheter removed over the exchange wire. A 5 omani Angled Pig catheter in over wire. EDP Sample taken: LV 164/-2,14; HR: 83 BPM; SpO2: 96%. LV gram performed in DO @ 10 mL/second for a total of 30 mL. EDP Sample taken: LV 169/11,35; HR: 91 BPM; SpO2: 95%. Pullback taken: LV Off; AO Off; Mean: , Peak to Peak: , SEP: ; HR: 84 BPM; SpO2: 96%. Catheter removed over the exchange wire. Physician scrubbed out. TR band placed. Hemostasis obtained. A TR Band was successful obtaining hemostatsis at the Right Radial artery insertion site. Post Procedure: Pulses reassessed and unchanged. PERRLA. Strong, equal hand dish machine operator bilaterally. No VTE prophylaxis required. Medication's Wasted: Lidocaine 1% = 15 mL. Medication's Wasted: Heparin = 1000 units. Medication's Wasted: Nitro = 49.8 mg. Total IV fluids: 33 mL. Contrast type used: Omnipaque 300 mgI/mL, 500 mL bottle. Complications: None. Estimated blood loss: 5mL-10mL. Procedure completed. Patient transferred by wheelchair to CPRU. Vital chart was stopped. Access Site Site: Right Radial artery Sheath Size: 6 Fr Hemostasis Method: TR Band Hemostasis Success: Successful Procedure Medications Start: 9:05 AM Stop: 9:05 AM Medication: Versed Amount: 1 mg Route: I.V. Start: 9:05 AM Stop: 9:05 AM Medication: Fentanyl Amount: 50 mcg Route: I.V. Start: 9:11 AM Stop: 9:11 AM Medication: Versed Amount: 1 mg Route: I.V. Start: 9:11 AM Stop: 9:11 AM Medication: Fentanyl Amount: 50 mcg Route: I.V. Start: 9:15 AM Stop: 9:15 AM Medication: Versed Amount: 1 mg Route: I.V. Start: 9:18 AM Stop: 9:18 AM Medication: Nitrogylcerin Amount: 200 mcg Route: I.A. Start: 9:21 AM Stop: 9:21 AM Medication: Heparin Amount: 5000 units Route: I.V. Start: 9:22 AM Stop: 9:22 AM Medication: Versed Amount: 1 mg Route: I.V. I, the attending physician, have reviewed and verified all procedure medications. Yes, all medications given per verbal order History/Risk Factors Hypertension: Yes Dyslipidemia: No Peripheral Arterial Disease (PAD): No Myocardial Infarction (ME): No Obesity: No Renal Disease: No Prior Interventions PCI: No CABG: No Valve Surgery: No Report Signatures Finalized by Abdirahman Mayberry MD on 07/06/2021 02:47 PM
[2021-06-30] MEDS: diphenhydrAMINE 50 mg Capsule PO (08:28)
--- NOTE | 2021-06-30 08:58 | W.PM.OPSFHP ---
Same Day Surgery H&P Indication for Procedure/HPI DATE OF PROCEDURE: June 30, 2021 CHIEF COMPLAINT/INDICATIONFOR SURGICAL PROCEDURE: Worsening of chest pain along with shortness of breath PREOP DIAGNOSIS: Unexplained shortness of breath and chest pain PLANNED PROCEDRUE: Operation Date: 06/30/21 08:30 Proposed Procedures p Cardiac Catheterization(Bilateral) - Abdirahman Mayberry MD 50-year-old female past medical history is resistant hypertension with worsening of chest pain along with shortness of breath has been referred to us for left heart cath due to worsening of symptoms. Patient had normal stress test in month of October, despite of optimization of medicine shortness of breath and chest pressure continues to worsen. It is the reason patient was referred to us by Dr. Metcalf for left heart cath. I have explained in detail all the risk benefit and alternative for the procedure including urgent emergent bypass surgery, , contrast-induced nephropathy, allergic reaction leading to anaphylaxis, radial artery injury, vascular injury, pseudoaneurysm, neuropathy, stroke, contrast-induced nephropathy. She would like to proceed with it. She understand the risk of major minor bleed. Patient has been premedicated for allergic reaction. She claims some sort of questionable allergies to MRI dye such as nausea feeling lethargic but no breaking out no anaphylaxis. Medications/Allergies* Home Medications Medication Instructions Recorded Confirmed Type tizanidine 4 mg capsule 4 mg PO TID PRN 11/17/19 06/30/21 History bimatoprost 0.01 % eye drops 1 drop OPHTHALMIC (EYE) DAILY@199912/09/19 06/30/21 History insulin aspart U-100 100 unit/mL 20 unit SUBCUT BID@0900,2100 ml 07/20/20 06/30/21 History (3 mL) subcutaneous pen Allergies/Adverse Reactions Allergy/AdvReac Type Severity Reaction Status Date / Time etanercept [From Enbrel] Allergy Severe SWELLING Verified 06/29/21 12:55 sulfamethoxazole Allergy Severe swelling,SO Verified 06/29/21 12:55 B adalimumab [From Humira] Allergy Intermediate rash, Verified 06/29/21 12:55 swelling throat GABI Inhibitors Allergy COUGH Verified 06/29/21 12:55 atropine Allergy RAPID PULSE Verified 06/29/21 12:55 cefprozil Allergy RASH Verified 06/29/21 12:55 duloxetine [From Cymbalta] Allergy Unknown Verified 06/29/21 12:55 infliximab [From Remicade] Allergy NAUSEA Verified 06/29/21 12:55 Iodinated Contrast Media Allergy NAUSEA,DECREASED Verified 06/29/21 12:55 URINATION,SWEATING Sulfa (Sulfonamide Allergy RASH Verified 06/29/21 12:55 Antibiotics) topiramate [From Topamax] Allergy EDEMA,HIVES Verified 06/29/21 12:55 leflunomide AdvReac Intermediate nauseau Verified 06/29/21 12:55 and vomiting Current Medications: Generic Name Dose Route Start Last Admin Trade Name Freq PRN Reason Stop Dose Admin Sodium Chloride 1,000 mls @ 50 mls/hr 06/30/21 07:30 06/30/21 08:28 Sodium Chloride 0.9% IV 07/01/21 03:29 Not Given .Q20H ONE Pertinent History/Comorbid Conditions* Medical History (Updated 04/06/21 @ 17:43 by Catina Metcalf MD) Allergic rhinitis due to dust Ankylosing spondylitis of unspecified sites in spine Anxiety Chronic inflammation of colon Corticosteroid-induced osteoporosis Crohn's disease Current chronic use of systemic steroids DDD (degenerative disc disease), lumbar Elevated lipase High risk medication use HLA B27 (HLA B27 positive) HTN (hypertension) Immunization counseling Immunosuppression Type 2 diabetes mellitus with hyperglycemia Vitamin D deficiency Surgical History (Updated 05/25/20 @ 18:17 by KYARA Conner) History of cataract surgery left 03/11/19 and right Presence of neurostimulator Family History (Updated 02/26/20 @ 14:13 by Emilie Kitchen LPN) Rheumatoid arthritis Diabetes Heart disease Hypercholesterolemia Cancer Mother Hypertension Stroke Denies family history of Systemic lupus erythematosus (SLE) in adult Social History Smoking and tobacco status: current every day smoker Quit status (tobacco): has tried quititng Second hand smoke exposure: No Smoking risk assessment/counseling performed?: No Alcohol intake: former Desire information about alcohol rehabilitation?: No Counseling given: No Desire information about substance/drug rehabilitation?: No Counseling given: No Adopted: No Caregiver/support person: No Lives independently: Yes Household members: other Details: partner Housing: House Marital status: Life Partner service: No Current occupational status: employed Pets and animals: Yes History of recent travel: No Current gender identity: Female Pertinent Exam Findings alert, oriented x 3, clear to auscultation bilaterally and regular rate & rhythm Conscious Sedation Assessment PATIENT ASSESSED PRIOR TO SEDATION, WITH NO CHANGE NOTED: Yes AIRWAY EVAL/ANESTHESIA PLAN: ASA II, Risks, benefits & alternatives of sedation and/or procedure discussed and Patient agrees to continue as planned Recommendations Surgery/Procedure today Coding Level of Care Code Acute Electrical Calibrator for Jennifer Mcfarlane
--- NOTE | 2021-06-30 09:50 | PC.NURSE ---
received pt from [facility]. pt complains of no pain. pt drowsy but able to direct and follow direction. tr band in place on right wrist with no swelling or hematoma noted. pt and partner educated on restrictions of right wrist. nurse to educated throughout recovery. pt placed on vitals machine and will be monitored per protocol.
[2021-06-30 10:49] LABS: Glucose Point of Care 295 mg/dL (70-110)
== END 2021-06-30 12:51 | disposition home or self-care (01) ==
PROVIDERS: PCP Nurse Practitioner; Visit Provider Internal Medicine Cardiovascular Disease
DX: I25.10 Atherosclerotic heart disease of native coronary artery without angina pectoris (principal); I10 Essential (primary) hypertension; F41.9 Anxiety disorder, unspecified; M81.0 Age-related osteoporosis without current pathological fracture; M51.36 Other intervertebral disc degeneration, lumbar region; E55.9 Vitamin D deficiency, unspecified; E11.65 Type 2 diabetes mellitus with hyperglycemia; Z79.4 Long term (current) use of insulin; Z82.49 Family history of ischemic heart disease and other diseases of the circulatory system; Z83.3 Family history of diabetes mellitus; F17.210 Nicotine dependence, cigarettes, uncomplicated
CPT/HCPCS: 36415; 36416; 82962; 93452; C1769; C1887; C1894; Q9967

== ENCOUNTER → 2021-07-06 15:20 | Outpatient (BNVA) | payer MEDICARE, MEDICAID, SELFPAY | PROVIDERS: PCP Nurse Practitioner; Visit Provider Internal Medicine Cardiovascular Disease | DX: R06.00 Dyspnea, unspecified (principal); F17.200 Nicotine dependence, unspecified, uncomplicated; R07.9 Chest pain, unspecified; E11.65 Type 2 diabetes mellitus with hyperglycemia; Z79.4 Long term (current) use of insulin; K50.919 Crohn's disease, unspecified, with unspecified complications; R00.0 Tachycardia, unspecified; R07.89 Other chest pain; G47.30 Sleep apnea, unspecified; I10 Essential (primary) hypertension | CPT/HCPCS: 80048; 83735; 83880 ==

== ENCOUNTER 2021-07-19 13:54 | Outpatient (CLI) | payer MEDICARE, MEDICAID, SELFPAY ==
--- NOTE | 2021-07-19 14:06 | XRR_ITS ---
PROCEDURE INFORMATION: Exam: XR Chest Exam date and time: 07/19/2021 2:06 PM Age: 50 years old Clinical indication: Shortness of breath; Other: Not specified; Prior surgery; Surgery type: Nerve stimulator; Patient HX: History--chest pain, passing out, SOB symptoms have been present since PT experienced stroke in nov. PT states symptoms are getting worse. ; Additional info: F17.200 - nicotine dependence, unspecified, uncomplicated TECHNIQUE: Imaging protocol: XR of the chest. Views: 2 views. COMPARISON: CR XR chest 1V portable [id number] 10/25/2020 7:49 AM FINDINGS: Lungs: Unremarkable. No consolidation. No air trapping is identified with expiration. Pleural spaces: Unremarkable. No pleural effusion. No pneumothorax. Heart/Mediastinum: Unremarkable. No cardiomegaly. Bones/joints: Unremarkable. XR/XR chest 2V insp/exp [id number] IMPRESSION: No acute findings.
[2021-07-20 14:48] LABS: PROTEIN, TOTAL 6.7 g/dL (6.1-8.1)
[2021-07-21 13:24] LABS: ALBUMIN 3.7 g/dL (3.8-4.8); ALPHA 1 GLOBULIN 0.4 g/dL (0.2-0.3); BETA 1 GLOBULIN 0.5 g/dL (0.4-0.6); BETA 2 GLOBULIN 0.4 g/dL (0.2-0.5); GAMMA GLOBULIN 0.7 g/dL (0.8-1.7)
[2021-07-23 05:08] LABS: Kappa Free Light Chains Urine 4.75 mg/L (<=32.90)
== END 2021-07-19 13:55 | disposition home or self-care (01) ==
PROVIDERS: Nurse Practitioner Family; PCP Nurse Practitioner; Visit Provider Internal Medicine Cardiovascular Disease
DX: F17.200 Nicotine dependence, unspecified, uncomplicated (principal); Z15.89 Genetic susceptibility to other disease; D89.9 Disorder involving the immune mechanism, unspecified; K50.919 Crohn's disease, unspecified, with unspecified complications; M45.9 Ankylosing spondylitis of unspecified sites in spine
CPT/HCPCS: 36415; 71046; 83883; 84155; 84156; 84165; 84260; 86335

== ENCOUNTER → 2021-08-08 10:12 | Outpatient (BNVA) | payer MEDICARE, MEDICAID, SELFPAY | PROVIDERS: PCP Nurse Practitioner; Visit Provider Internal Medicine Rheumatology | DX: M45.9 Ankylosing spondylitis of unspecified sites in spine (principal); K50.919 Crohn's disease, unspecified, with unspecified complications; Z15.89 Genetic susceptibility to other disease; Z79.899 Other long term (current) drug therapy; Z79.52 Long term (current) use of systemic steroids; M81.8 Other osteoporosis without current pathological fracture; M12.811 Other specific arthropathies, not elsewhere classified, right shoulder; Z96.82 Presence of neurostimulator; F17.200 Nicotine dependence, unspecified, uncomplicated | CPT/HCPCS: 99214 ==

== ENCOUNTER → 2021-10-13 15:12 | Outpatient (BNVA) | payer MEDICARE, MEDICAID, SELFPAY | PROVIDERS: PCP Nurse Practitioner; Visit Provider Internal Medicine | DX: E11.65 Type 2 diabetes mellitus with hyperglycemia (principal); E11.40 Type 2 diabetes mellitus with diabetic neuropathy, unspecified; E11.29 Type 2 diabetes mellitus with other diabetic kidney complication; E55.9 Vitamin D deficiency, unspecified; E78.2 Mixed hyperlipidemia; R80.9 Proteinuria, unspecified; D89.9 Disorder involving the immune mechanism, unspecified; E04.1 Nontoxic single thyroid nodule; F17.200 Nicotine dependence, unspecified, uncomplicated; Z79.4 Long term (current) use of insulin | CPT/HCPCS: 99214 ==

== ENCOUNTER → 2021-10-20 12:39 | Outpatient (BNVA) | payer MEDICARE, MEDICAID, SELFPAY | PROVIDERS: PCP Nurse Practitioner; Visit Provider Internal Medicine Cardiovascular Disease | DX: Z01.812 Encounter for preprocedural laboratory examination (principal); E11.40 Type 2 diabetes mellitus with diabetic neuropathy, unspecified; E11.65 Type 2 diabetes mellitus with hyperglycemia; E55.9 Vitamin D deficiency, unspecified; E78.2 Mixed hyperlipidemia; Z79.4 Long term (current) use of insulin; Z20.822 Contact with and (suspected) exposure to COVID-19 | CPT/HCPCS: 82043; 87635 ==

== ENCOUNTER 2021-10-27 11:03 | Outpatient (CLI) | payer MEDICARE, MEDICAID, SELFPAY ==
--- NOTE | 2021-10-27 13:39 | PFTS_ITS ---
Date of Study:10/27/21 Date of Dictation: MECHANICS: Forced vital capacity (FVC) is reduced. Forced expiratory volume in one second (FEV1) is normal. FEV1/FVC is normal. FLOW VOLUME LOOP: Normal. LUNG VOLUMES: Total lung capacity (TLC) is normal. Residual volume (RV) is mildly reduced. DIFFUSING CAPACITY FOR CARBON MONOXIDE: Mild reduced. INTERPRETATION: The pulmonary function test is consistent with nonspecific ventilatory limitations. The postbronchodilator spirometry is consistent with mild restriction. The lower lung capacity however is normal. The patient likely has a combined obstructive and restrictive ventilatory defects. There is nonspecific reduction in residual volume. Gas exchange (DLCO) is mildly reduced. MTDD
== END 2021-10-27 11:04 | disposition home or self-care (01) ==
LOC: RT 11:05
PROVIDERS: PCP Nurse Practitioner; Visit Provider Internal Medicine Cardiovascular Disease
DX: R06.00 Dyspnea, unspecified (principal)
CPT/HCPCS: 94060; 94726; 94729; J7611

== ENCOUNTER → 2021-11-23 11:30 | Outpatient (BNVA) | payer MEDICARE, MEDICAID, SELFPAY | PROVIDERS: PCP Nurse Practitioner; Visit Provider Nurse Practitioner | DX: Z20.822 Contact with and (suspected) exposure to COVID-19 (principal) | CPT/HCPCS: 87635 ==

== ENCOUNTER → 2021-12-12 13:28 | Outpatient (BNVA) | payer MEDICARE, MEDICAID, SELFPAY | PROVIDERS: PCP Nurse Practitioner; Visit Provider Internal Medicine Rheumatology | DX: M45.9 Ankylosing spondylitis of unspecified sites in spine (principal); Z15.89 Genetic susceptibility to other disease; K50.919 Crohn's disease, unspecified, with unspecified complications; Z79.899 Other long term (current) drug therapy; Z86.16 Personal history of COVID-19; Z96.82 Presence of neurostimulator; Z71.89 Other specified counseling; F17.200 Nicotine dependence, unspecified, uncomplicated | CPT/HCPCS: 99214 ==

== ENCOUNTER → 2022-01-09 14:58 | Outpatient (BNVA) | payer MEDICARE, MEDICAID, SELFPAY | PROVIDERS: PCP Nurse Practitioner; Visit Provider Internal Medicine | DX: E11.40 Type 2 diabetes mellitus with diabetic neuropathy, unspecified (principal); E11.65 Type 2 diabetes mellitus with hyperglycemia; E11.29 Type 2 diabetes mellitus with other diabetic kidney complication; R80.9 Proteinuria, unspecified; D89.9 Disorder involving the immune mechanism, unspecified; E04.1 Nontoxic single thyroid nodule; E78.2 Mixed hyperlipidemia; E78.5 Hyperlipidemia, unspecified; Z79.4 Long term (current) use of insulin; F17.200 Nicotine dependence, unspecified, uncomplicated | CPT/HCPCS: 99214 ==

== ENCOUNTER → 2022-02-02 12:27 | Outpatient (BNVA) | payer MEDICARE, MEDICAID, SELFPAY | PROVIDERS: PCP Nurse Practitioner; Visit Provider Nurse Practitioner | DX: M79.18 Myalgia, other site (principal); M25.519 Pain in unspecified shoulder; E04.1 Nontoxic single thyroid nodule; E11.65 Type 2 diabetes mellitus with hyperglycemia; E78.5 Hyperlipidemia, unspecified; E11.40 Type 2 diabetes mellitus with diabetic neuropathy, unspecified; I10 Essential (primary) hypertension | CPT/HCPCS: 80053; 80061; 82043; 83036; 84439; 84443 ==

== ENCOUNTER → 2022-04-04 13:42 | Outpatient (BNVA) | payer MEDICARE, MEDICAID, SELFPAY | PROVIDERS: PCP Nurse Practitioner; Visit Provider Internal Medicine Cardiovascular Disease | DX: I48.0 Paroxysmal atrial fibrillation (principal); I10 Essential (primary) hypertension; G47.30 Sleep apnea, unspecified; E78.2 Mixed hyperlipidemia; E11.65 Type 2 diabetes mellitus with hyperglycemia; Z79.4 Long term (current) use of insulin; F17.200 Nicotine dependence, unspecified, uncomplicated | CPT/HCPCS: 99214 ==

== ENCOUNTER 2022-04-04 14:39 | Outpatient (CLI) | payer MEDICARE, MEDICAID, SELFPAY ==
[2022-04-04 15:12] LABS: Basophils % 0.3 %; Eosinophils # 0.1 10^3/uL (0.0-0.8); Eosinophils % 0.7 %; Hematocrit 44.1 % (37.0-47.0); Hemoglobin 13.8 g/dL (11.5-15.3); Lymphocytes # 1.5 10^3/uL (0.8-4.8); Lymphocytes % 9.6 %; Mean Corpuscular HGB Conc 31.3 g/dL (30.0-36.0); Mean Corpuscular Hemoglobin 27.4 pg (28.0-34.0); Mean Corpuscular Volume 87.7 fl (81-99); Mean Platelet Volume 10.5 fL (7.4-10.4); Monocytes # 0.6 10^3/uL (0.2-0.9); Monocytes % 3.9 %; Neutrophils # 13.23 10^3/uL (1.8-7.7); Neutrophils % 85.1 %; Nucleated Red Blood Cells % 0 %; Platelet Count 316 10^3/cmm (130-400); Red Blood Count 5.03 10^6/uL (4.1-5.3); Red Cell Distribution Width 14.4 % (12.1-15.1); White Blood Count 15.6 10^3/uL (4.0-10.0)
[2022-04-04 15:29] LABS: Alanine Aminotransferase 14 U/L (0-33); Albumin Level 4.4 g/dL (3.5-5.2); Alkaline Phosphatase 87 IU/L (35-105); Anion Gap 16.6 (5-19); Aspartate Amino Transferase 11 U/L (0-32); Blood Urea Nitrogen 19 mg/dL (6-20); C Reactive Protein 14.5 mg/L (0.0-4.9); Calcium 9.6 mg/dL (8.5-10.5); Carbon Dioxide 26 mmol/L (22-29); Chloride 101 mmol/L (98-107); Globulin 3.3 g/dL (1.3-4.6); Glucose 173 mg/dL (65-115); Osmolality Calculated 294 mOsm/kg (285-295); Potassium 4.6 mmol/L (3.5-5.1); Sodium 139 mmol/L (136-145); Total Bilirubin 0.3 mg/dL (0.15-1.2); Total Protein 7.7 g/dL (6.6-8.7)
[2022-04-04 16:43] LABS: Estmated Average Glucose 214; Hemoglobin A1C 9.1 % (4.0-6.0)
== END 2022-04-04 14:40 | disposition home or self-care (01) ==
LOC: LAB 14:46
PROVIDERS: PCP Nurse Practitioner; Referring Provider Internal Medicine; Visit Provider Internal Medicine Rheumatology
DX: E11.65 Type 2 diabetes mellitus with hyperglycemia (principal); M45.9 Ankylosing spondylitis of unspecified sites in spine; E78.2 Mixed hyperlipidemia; Z79.4 Long term (current) use of insulin; Z79.899 Other long term (current) drug therapy
CPT/HCPCS: 80048; 80076; 83036; 85025; 86140

== ENCOUNTER → 2022-04-11 12:58 | Outpatient (BNVA) | payer MEDICARE, MEDICAID, SELFPAY | PROVIDERS: PCP Nurse Practitioner; Visit Provider Internal Medicine Rheumatology | DX: M46.90 Unspecified inflammatory spondylopathy, site unspecified (principal); K50.90 Crohn's disease, unspecified, without complications; Z79.899 Other long term (current) drug therapy; Z15.89 Genetic susceptibility to other disease; M13.811 Other specified arthritis, right shoulder; Z79.52 Long term (current) use of systemic steroids; E11.9 Type 2 diabetes mellitus without complications; Z79.4 Long term (current) use of insulin; Z96.82 Presence of neurostimulator; Z71.89 Other specified counseling | CPT/HCPCS: 99214 ==

== ENCOUNTER → 2022-04-20 14:31 | Outpatient (BNVA) | payer MEDICARE, MEDICAID, SELFPAY | PROVIDERS: PCP Nurse Practitioner; Visit Provider Internal Medicine | DX: E11.65 Type 2 diabetes mellitus with hyperglycemia (principal); E11.40 Type 2 diabetes mellitus with diabetic neuropathy, unspecified; E11.29 Type 2 diabetes mellitus with other diabetic kidney complication; E78.5 Hyperlipidemia, unspecified; E78.2 Mixed hyperlipidemia; R74.8 Abnormal levels of other serum enzymes; E04.1 Nontoxic single thyroid nodule; R80.9 Proteinuria, unspecified; D89.9 Disorder involving the immune mechanism, unspecified; Z79.4 Long term (current) use of insulin; Z87.891 Personal history of nicotine dependence | CPT/HCPCS: 99214 ==

== ENCOUNTER 2022-05-22 12:02 | Emergency (ER) | payer MEDICARE, MEDICAID, SELFPAY ==
[2022-05-22 12:43] VITALS: BP 147/79; PULSE 56; RESP 16; TEMP 36.8; O2SAT 96; BMI 40.3
--- NOTE | 2022-05-22 13:03 | W.ED.GENADLT ---
HPI - General Adult General: Chief complaint: General Medical Stated complaint: exposed to animal blood Time Seen by Provider: 05/22/22 12:52 Source: patient Mode of arrival: ambulatory Limitations: no limitations History of Present Illness: Patient is a nice 51-year-old female presents to ED today at the request of her social worker for evaluation of rabies PEP. Patient states this morning around 7:30 AM she witnessed for raccoons traveling near her yard. Patient states she headed towards them to deter them from coming into her yard when one of the raccoons started coming towards her. She states her dog then attacked the raccoon. She states in order to protect her dog she pulled the raccoon from the dog's mouth. Patient states she never had any bite or scratch from the raccoon. She did get raccoon blood on her hands. Marketing Automation Manager recommended she come to the ED because she is immunocompromised. Onset (ago): hour(s) Location: upper extremity Associated symptoms: Reports no associated symptoms; Deny chest pain, dyspnea, headache(s), malaise or rash Treatments prior to arrival: none Review of Systems Const: Denies: fever(s), chills, body aches, fatigue or malaise Card: Denies: chest pain Resp: Denies: dyspnea GI: Denies: abdominal pain Musc: Denies: neck pain, back pain, extremity pain or joint pain Skin/Breast: Denies: rash Neuro: Denies: headache(s), numbness in extremities, weakness in extremities, sensory changes or dizziness [facility] ED PFSH: Medical History Allergic rhinitis due to dust Ankylosing spondylitis of unspecified sites in spine Anxiety Axial spondyloarthritis Chronic inflammation of colon Corticosteroid-induced osteoporosis Crohn's disease Current chronic use of systemic steroids DDD (degenerative disc disease), lumbar Elevated lipase High risk medication use HLA B27 (HLA B27 positive) HTN (hypertension) Immunization counseling Immunosuppression Type 2 diabetes mellitus with hyperglycemia Vitamin D deficiency Surgical History History of cataract surgery left 03/11/19 and right Presence of neurostimulator Family History Mother Cancer Grandfather CAD (coronary artery disease), Onset Age: 50 [place] x 3 Stroke Grandfather CAD (coronary artery disease) Cancer Father CAD (coronary artery disease), Onset Age: 60 Dementia Lung disease Grandmother Cancer Family/Other Diabetes Other Heart disease Hypercholesterolemia Hypertension Rheumatoid arthritis Denies family history of Clotting disorder Chronic kidney disease (CKD) Systemic lupus erythematosus (SLE) in adult Suicide Anesthesia complication Bleeding disorder Social History Smoking and tobacco status: former smoker Quit status (tobacco): has tried quititng Second hand smoke exposure: No Smoking risk assessment/counseling performed?: No Alcohol intake: former Desire information about alcohol rehabilitation?: No Counseling given: No Desire information about substance/drug rehabilitation?: No Counseling given: No Adopted: No Caregiver/support person: No Lives independently: Yes Household members: other Details: partner Housing: House Marital status: Life Partner service: No Current occupational status: employed Pets and animals: Yes History of recent travel: No Current gender identity: Female Physical Exam Const: COMMON NORMALS: no acute distress, no limitations and alert GENERAL APPEARANCE: cooperative Neuro: SENSORIUM/ORIENTATION: Yes alert Skin: NARRATIVE SKIN EXAM: pt has no bites, scratches, or open wounds of any kind Course Vital Signs: Vital signs: Vital Signs Temperature 98.2 F 05/22/22 12:43 Pulse Rate 56 L 05/22/22 12:43 Respiratory Rate 16 05/22/22 12:43 Blood Pressure 147/79 05/22/22 12:43 Pulse Oximetry 96 05/22/22 12:43 [facility] - General Adult Medical Decision Making Patient has absolutely no bites or scratches present. She has no open wounds. Her contact was to raccoon of blood only. Exposure of normal keratinized skin to saliva or any contact with blood of a rabid animal does not constitute an exposure and patient does not need postexposure rabies prophylaxis. Discharge Plan Discharge Patient Disposition: Home Clinical Impression: Other contact with raccoon, initial encounter Condition: Stable Prescriptions: No Action Lumigan 0.01 % drops 1 drop ophthalmic (eye) DAILY@2000 0RF ascorbic acid (vitamin C) 1,000 mg tablet 1 g PO BID 0RF timolol maleate 0.25 % drops 1 drp ophthalmic (eye) BID 0RF Eliquis 5 mg tablet 5 mg PO BID 0RF alendronate [Fosamax] 70 mg tablet 70 mg PO .weekly Qty: 15 1RF Hold Instructions: Patient No Longer Taking Rx Instructions: take on Wednesdays. prednisone 5 mg tablet See Rx Instructions .ROUTE .COMPLEX Qty: 90 3RF Dose Instruction: TAKE THREE TABLETS (15MG) BY MOUTH EVERY DAY. TAKE WITH MEALS. Rx Instructions: TAKE THREE TABLETS (15MG) BY MOUTH EVERY DAY. TAKE WITH MEALS. Stelara 90 mg/mL syringe 90 mg SUBCUT .[id number] Qty: 1 1RF (DME) Dexcom G6 Sensor Device See Rx Instructions .Route Qty: 9 3RF Rx Instructions: Change every 10 days. (DME) Dexcom G6 Medical Administrative Assistant Misc See Rx Instructions .Route Qty: 1 0RF Rx Instructions: Check BS 4-6 times a day. (DME) Dexcom G6 Transmitter Device See Rx Instructions .Route Qty: 3 3RF Rx Instructions: Change every 90 days. (DME) sling arm See Rx Instructions .Route .MEDSUPPLY Qty: 1 0RF Rx Instructions: As directed (DME) cpap auto titration See Rx Instructions .Route .MEDSUPPLY Qty: 1 0RF Rx Instructions: As directed auto titrating cpap (6-20) with supplies 99 months, fluticasone propionate 50 mcg/actuation spray,suspension 2 spray INTRANASAL DAILY@0900 Qty: 15.8 2RF nitroglycerin 0.4 mg tablet, sublingual 0.4 mg sublingual Q5M PRN (Reason: chest pain) Qty: 25 3RF Rx Instructions: do not exceed 3 doses per episode Janumet XR 50-1,000 mg tablet, ER multiphase 24 hr 2 tab PO DAILY@0900 Qty: 190 3RF Hold Instructions: Doctor's Order Rx Instructions: Unable to tolerate Metformin without combination tablet (DME) OneTouch Ultra Blue Test Strip Strip See Rx Instructions .ROUTE .MEDSUPPLY Qty: 100 5RF Rx Instructions: three times day tizanidine 4 mg capsule 4 mg PO TID PRN (Reason: muscle spasms) Qty: 90 2RF albuterol sulfate [Ventolin HFA] 90 mcg/actuation HFA aerosol inhaler 2 puff INHALATION Q4H PRN (Reason: shortness of breath or wheezing) Qty: 18 2RF furosemide 40 mg tablet 40 mg PO DAILY@0900 Qty: 90 2RF gabapentin 300 mg capsule 300 mg PO TID@09,, Qty: 90 2RF (DME) nebulizers Misc See Rx Instructions .ROUTE .MEDSUPPLY Qty: 1 0RF Rx Instructions: As directed (DME) Disposable nebulizer circuit See Rx Instructions .ROUTE .MEDSUPPLY Qty: 1 2RF Rx Instructions: As directed budesonide [Pulmicort] 0.5 mg/2 mL suspension for nebulization 0.5 mg inhalation BID Qty: 60 0RF (DME) pen needle, diabetic [Advocate Pen Needle] 31 gauge x 5/16 needle See Rx Instructions .ROUTE .MEDSUPPLY Qty: 400 3RF Rx Instructions: 4 daily albuterol sulfate 2.5 mg /3 mL (0.083 %) solution for nebulization 2.5 mg inhalation Q4H PRN (Reason: shortness of breath or wheezing) Qty: 300 2RF valsartan 160 mg tablet 160 mg PO DAILY Qty: 90 3RF Lipitor 20 mg tablet 20 mg PO DAILY@1999 Qty: 90 3RF amlodipine 5 mg tablet 5 mg PO DAILY Qty: 90 3RF Tresiba FlexTouch U-200 200 unit/mL (3 mL) insulin pen 135 unit SUBCUT DAILY@0900 Qty: 18 3RF Rx Instructions: Administer 135 units subcut daily. metoprolol tartrate 50 mg tablet 50 mg PO BID Qty: 180 2RF Celebrex 200 mg capsule 200 mg PO BID@,21 Qty: 60 2RF insulin aspart U-100 [Novolog Flexpen U-100 Insulin] 100 unit/mL (3 mL) insulin pen 30 unit SUBCUT TID Qty: 45 3RF Rx Instructions: Administer 30 units three times a day with meals. tramadol 50 mg tablet 50 mg PO TID PRN (Reason: take for moderate to severe pain PRN) Qty: 90 2RF pantoprazole 40 mg tablet,delayed release (DR/EC) See Rx Instructions .ROUTE .COMPLEX Qty: 30 3RF Hold Instructions: Patient No Longer Taking Dose Instruction: TAKE ONE TABLET BY MOUTH DAILY AT 9:00 A.M. Rx Instructions: TAKE ONE TABLET BY MOUTH DAILY AT 9:00 A.M. Discharge Orders: Discharge ED (Routine); Ordered 05/22/22 Ordered By: Nahed Bearden Referrals: Chas Brown, RUG CUTTER HELPER-C [Primary Care Provider] - Coding Level of Care Code ED Advertising Intern for Jennifer Mcfarlane
== END 2022-05-22 13:09 | disposition home or self-care (01) ==
PROVIDERS: Emergency Provider Physician Assistant; PCP Nurse Practitioner
DX: Z03.89 Encounter for observation for other suspected diseases and conditions ruled out (principal); W55.59XA Other contact with raccoon, initial encounter
CPT/HCPCS: 99281

== ENCOUNTER → 2022-06-28 11:52 | Outpatient (BNVA) | payer MEDICARE, MEDICAID, SELFPAY | PROVIDERS: PCP Nurse Practitioner; Visit Provider Nurse Practitioner | DX: M45.9 Ankylosing spondylitis of unspecified sites in spine (principal); Z79.899 Other long term (current) drug therapy; E55.9 Vitamin D deficiency, unspecified; M25.532 Pain in left wrist; E11.65 Type 2 diabetes mellitus with hyperglycemia; E78.5 Hyperlipidemia, unspecified; R74.8 Abnormal levels of other serum enzymes | CPT/HCPCS: 73110; 80053; 80061; 82248; 82306; 82607; 83036; 83690; 85025; 86140 ==

== ENCOUNTER → 2022-07-17 13:47 | Outpatient (BNVA) | payer MEDICARE, MEDICAID, SELFPAY | PROVIDERS: PCP Nurse Practitioner; Visit Provider Internal Medicine | DX: E11.40 Type 2 diabetes mellitus with diabetic neuropathy, unspecified (principal); E11.65 Type 2 diabetes mellitus with hyperglycemia; E11.29 Type 2 diabetes mellitus with other diabetic kidney complication; R80.9 Proteinuria, unspecified; D89.9 Disorder involving the immune mechanism, unspecified; E04.1 Nontoxic single thyroid nodule; E78.2 Mixed hyperlipidemia; Z79.4 Long term (current) use of insulin; Z87.891 Personal history of nicotine dependence | CPT/HCPCS: 99214 ==

== ENCOUNTER → 2022-08-14 13:59 | Outpatient (BNVA) | payer MEDICARE, MEDICAID, SELFPAY | PROVIDERS: PCP Nurse Practitioner; Visit Provider Internal Medicine Rheumatology | DX: M45.9 Ankylosing spondylitis of unspecified sites in spine (principal); Z15.89 Genetic susceptibility to other disease; Z71.89 Other specified counseling; K50.90 Crohn's disease, unspecified, without complications; Z79.52 Long term (current) use of systemic steroids; M13.811 Other specified arthritis, right shoulder; Z96.82 Presence of neurostimulator; E11.9 Type 2 diabetes mellitus without complications; Z79.4 Long term (current) use of insulin | CPT/HCPCS: 99214 ==

== ENCOUNTER 2022-11-06 11:58 | Outpatient (CLI) | payer MEDICARE, MEDICAID, SELFPAY ==
--- NOTE | 2022-11-06 12:15 | USCV_ITS ---
Estela Moise Age: 51 Gender: F : 1970 Exam Date: 11/06/2022 12:24 Ordering Phys: Jess Montero Technologist: Exam Location: [facility] [place] Indication: hx of ablation BP: 150 / 80 HR: 55 Rhythm: Sinus Technical Quality: Adequate MEASUREMENTS (Male / Female) Normal Values 2D ECHO LV Diastolic Diameter PLAX 5.1 cm 4.2 - 5.9 / 3.9 - 5.3 cm LV Systolic Diameter PLAX 3.2 cm IVS Diastolic Thickness 1.2 cm 0.6 - 1.0 / 0.6 - 0.9 cm IVS Systolic Thickness 2.0 cm LVPW Diastolic Thickness 1.1 cm 0.6 - 1.0 / 0.6 - 0.9 cm LVPW Systolic Thickness 1.6 cm LVOT Diameter 2.3 cm LV Ejection Fraction 2D Teich 67.2 % LV Ejection Fraction MOD 2C 66.8 % LV Ejection Fraction 2C AL 67.6 % LA Diameter 3.9 cm Aorta at Sinotubular Diameter 2.4 cm IVC Diameter 1.8 cm M-MODE Aortic Annulus Diameter 3.3 cm LA Ao Ratio MM 1.3 MV E Point Septal Separation 0.7 cm DOPPLER AV Peak Velocity 175.7 cm/s LVOT Peak Velocity 113.0 cm/s AV Area Cont Eq vti 2.6 cm squared AV Area Cont Eq pk 2.6 cm squared MV Area PHT 5.0 cm squared Mitral E to A Ratio 1.3 MV E' Velocity 66.0 cm/s Mitral E to MV E' Ratio 10.7 Mitral E to LV E' Lateral Ratio 12.3 Mitral E to LV E' Septal Ratio 9.5 TR Peak Velocity 284.7 cm/s TR Peak Gradient 32.4 mmHg TV Peak E Velocity 121.0 cm/s Right Atrial Pressure 3.0 mmHg Pulmonary Artery Systolic Pressu 35.4 mmHg RV Acceleration Time 0.2 s FINDINGS Left Ventricle Medical is normal size. LV systolic function is normal with EF of 55 to 60%. No regional wall motion abnormalities are seen. Diastolic function is normal Right Ventricle Normal in size and function Right Atrium Normal in size Left Atrium Dilated Mitral Valve Mitral valve is thickened. Mild mitral regurgitation. Aortic Valve Structurally normal aortic valve. No significant stenosis or regurgitation. Tricuspid Valve Mild tricuspid regurgitation.Insufficient TR jet to calculate RVSP Pulmonic Valve Not well visualized Pericardium Normal Aorta Normal in size IVC Appears to be normal CONCLUSIONS LV systolic function is normal with EF of 55 to 60%. Diastolic function is normal. Left atrial dilation Mild mitral regurgitation Mild tricuspid regurgitation Compared to prior echocardiograms from 2020, no siginficant changes are seen Akash Salvador MD (Electronically Signed) Final Date: 10 November 2022 14:35 S
== END 2022-11-06 11:59 | disposition home or self-care (01) ==
PROVIDERS: PCP Nurse Practitioner; Visit Provider Nurse Practitioner Family
DX: I48.0 Paroxysmal atrial fibrillation (principal); R06.09 Other forms of dyspnea; R07.89 Other chest pain; R53.83 Other fatigue
CPT/HCPCS: 93306; 99214

== ENCOUNTER → 2022-11-14 15:49 | Outpatient (BNVA) | payer MEDICARE, MEDICAID, SELFPAY | PROVIDERS: PCP Nurse Practitioner; Visit Provider Internal Medicine | DX: E78.2 Mixed hyperlipidemia (principal); E11.29 Type 2 diabetes mellitus with other diabetic kidney complication; R80.9 Proteinuria, unspecified; E11.40 Type 2 diabetes mellitus with diabetic neuropathy, unspecified; E11.65 Type 2 diabetes mellitus with hyperglycemia; Z79.899 Other long term (current) drug therapy; E04.1 Nontoxic single thyroid nodule; K50.919 Crohn's disease, unspecified, with unspecified complications; D89.9 Disorder involving the immune mechanism, unspecified; Z79.4 Long term (current) use of insulin | CPT/HCPCS: 36415; 80053; 80061; 83036; 84439; 84443; 99214 ==

== ENCOUNTER → 2023-01-24 11:19 | Outpatient (BNVA) | payer MEDICARE, MEDICAID, SELFPAY | PROVIDERS: PCP Nurse Practitioner; Visit Provider Nurse Practitioner Family | DX: J02.9 Acute pharyngitis, unspecified (principal); R05.9 Cough, unspecified; Z20.822 Contact with and (suspected) exposure to COVID-19 | CPT/HCPCS: 87071; 87426; 87486; 87581; 87633; 87880 ==

== ENCOUNTER → 2023-01-29 14:11 | Outpatient (BNVA) | payer MEDICARE, MEDICAID, SELFPAY | PROVIDERS: PCP Nurse Practitioner; Visit Provider Internal Medicine Rheumatology | DX: R13.10 Dysphagia, unspecified (principal); M46.90 Unspecified inflammatory spondylopathy, site unspecified; Z79.899 Other long term (current) drug therapy; Z15.89 Genetic susceptibility to other disease; Z71.89 Other specified counseling; R76.8 Other specified abnormal immunological findings in serum | CPT/HCPCS: 36415; 82085; 82306; 82550; 86160; 86162; 86235; 86255; 86376 ==

== ENCOUNTER → 2023-01-29 14:11 | Outpatient (BNVA) | payer MEDICARE, MEDICAID, SELFPAY | PROVIDERS: PCP Nurse Practitioner; Visit Provider Internal Medicine Rheumatology | DX: M46.90 Unspecified inflammatory spondylopathy, site unspecified (principal); Z79.899 Other long term (current) drug therapy; Z15.89 Genetic susceptibility to other disease; Z71.89 Other specified counseling | CPT/HCPCS: 99214 ==

== ENCOUNTER → 2023-02-19 10:03 | Outpatient (BNVA) | payer MEDICARE, MEDICAID, SELFPAY | PROVIDERS: PCP Nurse Practitioner; Visit Provider Nurse Practitioner Family | DX: I48.91 Unspecified atrial fibrillation (principal); Z79.01 Long term (current) use of anticoagulants | CPT/HCPCS: 99213 ==

== ENCOUNTER → 2023-02-26 09:50 | Outpatient (BNVA) | payer MEDICARE, MEDICAID, SELFPAY | PROVIDERS: PCP Nurse Practitioner; Visit Provider Internal Medicine Cardiovascular Disease | DX: I48.91 Unspecified atrial fibrillation (principal); Z79.01 Long term (current) use of anticoagulants | CPT/HCPCS: 93005 ==

== ENCOUNTER → 2023-03-12 13:33 | Outpatient (BNVA) | payer MEDICARE, MEDICAID, SELFPAY | PROVIDERS: PCP Nurse Practitioner; Visit Provider Internal Medicine | DX: E11.29 Type 2 diabetes mellitus with other diabetic kidney complication (principal); E11.40 Type 2 diabetes mellitus with diabetic neuropathy, unspecified; E11.65 Type 2 diabetes mellitus with hyperglycemia; R80.9 Proteinuria, unspecified; D89.9 Disorder involving the immune mechanism, unspecified; E04.1 Nontoxic single thyroid nodule; E78.2 Mixed hyperlipidemia; I95.1 Orthostatic hypotension; Z79.4 Long term (current) use of insulin; Z79.84 Long term (current) use of oral hypoglycemic drugs | CPT/HCPCS: 99214 ==

== ENCOUNTER → 2023-05-07 13:19 | Outpatient (BNVA) | payer MEDICARE, MEDICAID, SELFPAY | PROVIDERS: PCP Nurse Practitioner; Visit Provider Internal Medicine Cardiovascular Disease | DX: I48.91 Unspecified atrial fibrillation (principal); E11.65 Type 2 diabetes mellitus with hyperglycemia; Z79.4 Long term (current) use of insulin; M45.9 Ankylosing spondylitis of unspecified sites in spine; I10 Essential (primary) hypertension; M46.90 Unspecified inflammatory spondylopathy, site unspecified; R07.89 Other chest pain; G47.30 Sleep apnea, unspecified; F17.200 Nicotine dependence, unspecified, uncomplicated; E78.2 Mixed hyperlipidemia; E11.40 Type 2 diabetes mellitus with diabetic neuropathy, unspecified; K50.919 Crohn's disease, unspecified, with unspecified complications; R55 Syncope and collapse; Z79.01 Long term (current) use of anticoagulants; I48.0 Paroxysmal atrial fibrillation | CPT/HCPCS: 99214 ==

== ENCOUNTER → 2023-07-12 10:38 | Outpatient (BNVA) | payer MEDICARE, MEDICAID, SELFPAY | PROVIDERS: PCP Nurse Practitioner; Visit Provider Internal Medicine | DX: E11.29 Type 2 diabetes mellitus with other diabetic kidney complication (principal); R80.9 Proteinuria, unspecified; E11.40 Type 2 diabetes mellitus with diabetic neuropathy, unspecified; E11.65 Type 2 diabetes mellitus with hyperglycemia; D89.9 Disorder involving the immune mechanism, unspecified; E04.1 Nontoxic single thyroid nodule; E78.2 Mixed hyperlipidemia; Z15.89 Genetic susceptibility to other disease; Z79.899 Other long term (current) drug therapy; Z79.84 Long term (current) use of oral hypoglycemic drugs; Z79.4 Long term (current) use of insulin | CPT/HCPCS: 80053; 80061; 82044; 83036; 85025; 86140; 99214 ==

== ENCOUNTER → 2023-09-05 13:16 | Outpatient (BNVA) | payer MEDICARE, MEDICAID, SELFPAY | PROVIDERS: PCP Nurse Practitioner; Visit Provider Nurse Practitioner | DX: J02.9 Acute pharyngitis, unspecified (principal) | CPT/HCPCS: 87071; 87880 ==

== ENCOUNTER → 2023-12-18 14:42 | Outpatient (BNVA) | payer MEDICARE, MEDICAID, SELFPAY | PROVIDERS: PCP Nurse Practitioner; Visit Provider Internal Medicine Rheumatology | DX: M46.90 Unspecified inflammatory spondylopathy, site unspecified (principal); Z79.899 Other long term (current) drug therapy; Z15.89 Genetic susceptibility to other disease; Z71.89 Other specified counseling | CPT/HCPCS: 99214 ==

== ENCOUNTER 2023-12-20 12:03 | Outpatient (CLI) | payer MEDICARE, MEDICAID, SELFPAY ==
[2023-12-20 13:11] LABS: Basophils # 0.1 10^3/uL (0.0-0.1); Basophils % 0.4 %; Eosinophils # 0.1 10^3/uL (0.0-0.8); Eosinophils % 0.6 %; Hematocrit 43.1 % (36-47); Lymphocytes # 1.4 10^3/uL (0.8-4.8); Lymphocytes % 10.8 %; Mean Corpuscular HGB Conc 31.3 g/dL (30-55); Mean Corpuscular Hemoglobin 27.4 pg (27-33); Mean Corpuscular Volume 87.4 fl (85-98); Mean Platelet Volume 10.3 fL (7.4-10.4); Monocytes # 0.4 10^3/uL (0.2-0.9); Monocytes % 3.5 %; Neutrophils # 10.54 10^3/uL (1.8-7.7); Neutrophils % 84.2 %; Nucleated Red Blood Cells % 0 %; Platelet Count 378 10^3/cmm (157-399); Red Blood Count 4.93 10^6/uL (3.85-5.65); Red Cell Distribution Width 15.2 % (12.1-15.1); White Blood Count 12.51 10^3/uL (3.29-11.43)
[2023-12-20 13:32] LABS: Alanine Aminotransferase 16 U/L (0-33); Albumin Level 4.1 g/dL (3.5-5.2); Alkaline Phosphatase 97 U/L (35-105); Anion Gap 16.4 (5-19); Aspartate Amino Transferase 17 U/L (0-32); Blood Urea Nitrogen 11 mg/dL (6-20); Calcium 9.6 mg/dL (8.5-10.5); Carbon Dioxide 29 mmol/L (22-29); Chloride 99 mmol/L (98-107); Chol HDL Ratio 2.53 mg/dL (0.0-4.40); Cholesterol 129 mg/dL (0-200); Globulin 3.6 g/dL (1.3-4.6); Glucose 102 mg/dL (65-115); HDL Cholesterol 51 mg/dL (60-100); LDL Cholesterol Calculated 48 mg/dL (50-129); LDL HDL Ratio 0.94 RATIO (0.00-3.22); Osmolality Calculated 290 mOsm/kg (285-295); Potassium 4.4 mmol/L (3.5-5.1); Sodium 140 mmol/L (136-145); Total Bilirubin 0.5 mg/dL (0.15-1.2); Total Protein 7.7 g/dL (6.6-8.7); Triglycerides 149 mg/dL (0-150)
[2023-12-20 13:35] LABS: Creatinine Urine, Random 26 mg/dL (28-217); Microalbum Creatinine Ratio Ur 38 mg/dL (0-20); Microalbumin Random Urine 1 ug/dL (0-20)
[2023-12-20 13:38] LABS: Add Urine Culture? No; Bacteria Urine 1+ /hpf; Bilirubin Urine Neg (Negative); Blood Urine Neg (Negative); Glucose Urine UA Norm (Normal); Ketones Urine Negative (Negative); Leukocyte Esterase Urine Negative (Negative); Nitrate Urine Negative (Negative); Protein Urine Neg (Negative); RBC Urine 0-4 /hpf (0-2); Specific Gravity, Urine 1.005 (1.005-1.030); Squamous Epithelial Cell Urine 0-4 /hpf (0-5); Urine Appearance Clear (CLEAR); Urine Color Yellow (Yellow); Urobilinogen Urine Neg (Negative); WBC Urine 0-4 /hpf (0-5); pH Urine 6 (5-7)
[2023-12-20 13:45] LABS: Estmated Average Glucose 160; Hemoglobin A1C 7.2 % (4.0-6.0)
[2023-12-20 14:00] LABS: Thyroid Stimulating Hormone 1.01 uIU/mL (0.27-4.20)
== END 2023-12-20 12:04 | disposition home or self-care (01) ==
PROVIDERS: Specialist; Absent Provider Internal Medicine Rheumatology; PCP Nurse Practitioner; Visit Provider Internal Medicine
DX: E11.65 Type 2 diabetes mellitus with hyperglycemia (principal); Z79.4 Long term (current) use of insulin
CPT/HCPCS: 36415; 80053; 80061; 81001; 82044; 83036; 84443; 85025; 86780

== ENCOUNTER → 2024-01-05 14:25 | Outpatient (BNVA) | payer MEDICARE, MEDICAID, SELFPAY | PROVIDERS: PCP Nurse Practitioner; Visit Provider Emergency Medicine | DX: Z20.822 Contact with and (suspected) exposure to COVID-19 (principal); R68.89 Other general symptoms and signs | CPT/HCPCS: 87400; 87426 ==

== ENCOUNTER 2024-03-16 09:21 | Emergency (ER) | payer MEDICARE, MEDICAID, SELFPAY ==
[2024-03-16 09:28] VITALS: BP 170/79; PULSE 73; RESP 18; TEMP 36.6; O2SAT 92
[2024-03-16 10:21] LABS: Basophils % 0.3 %; Eosinophils # 0.1 10^3/uL (0.0-0.8); Eosinophils % 0.9 %; Hematocrit 40.7 % (36-47); Lymphocytes # 1.8 10^3/uL (0.8-4.8); Lymphocytes % 12.3 %; Mean Corpuscular HGB Conc 31.4 g/dL (30-55); Mean Corpuscular Hemoglobin 27.9 pg (27-33); Mean Corpuscular Volume 88.9 fl (85-98); Mean Platelet Volume 9.8 fL (7.4-10.4); Monocytes # 0.8 10^3/uL (0.2-0.9); Monocytes % 5.6 %; Neutrophils # 12.04 10^3/uL (1.8-7.7); Neutrophils % 80.6 %; Nucleated Red Blood Cells % 0 %; Platelet Count 328 10^3/cmm (157-399); Red Blood Count 4.58 10^6/uL (3.85-5.65); Red Cell Distribution Width 14.7 % (12.1-15.1); White Blood Count 14.91 10^3/uL (3.29-11.43)
--- NOTE | 2024-03-16 10:31 | W.ED.DENTAL ---
HPI - Dental/Oral General: Chief complaint: Dental/Oral Stated complaint: Right side face swelling Time Seen by Provider: 03/16/24 10:24 History of Present Illness: Patient has a history of teeth problems and has been following with a dentist who had put her on some antibiotics previously and had improved some but does not have scheduled a tooth extraction for some time now. Says he was not feeling very well and then overnight she developed swelling and her upper right molar area and then swelling throughout her cheek. She says she feels like the swelling is going all down into her neck says it feels funny when she swallows. There appears to be an abscess above one of her front right molars. Review of Systems Narrative: Constitutional symptoms: Negative except as documented in HPI. Skin symptoms: Negative except as documented in HPI. Eye symptoms: Negative except as documented in HPI. ENMT symptoms: Negative except as documented in HPI. Respiratory symptoms: Negative except as documented in HPI. Cardiovascular symptoms: Negative except as documented in HPI. Gastrointestinal symptoms: Negative except as documented in HPI. Genitourinary symptoms: Negative except as documented in HPI. Musculoskeletal symptoms: Negative except as documented in HPI. Neurologic symptoms: Negative except as documented in HPI. Psychiatric symptoms: Negative except as documented in HPI. Endocrine symptoms: Negative except as documented in HPI. PFS ED PFSH: Medical History Dysautonomia Neurogenic orthostatic hypotension Neurocardiogenic syncope Axial spondyloarthritis Elevated lipase HLA B27 (HLA B27 positive) Immunization counseling HTN (hypertension) Allergic rhinitis due to dust High risk medication use Crohn's disease Current chronic use of systemic steroids Immunosuppression Corticosteroid-induced osteoporosis Ankylosing spondylitis of unspecified sites in spine Chronic inflammation of colon Anxiety DDD (degenerative disc disease), lumbar Type 2 diabetes mellitus with hyperglycemia Vitamin D deficiency Surgical History Status post cryoablation of arrhythmia January, [facility] Presence of neurostimulator History of cataract surgery left 03/11/19 and right Family History Mother Cancer Grandfather CAD (coronary artery disease), Onset Age: 50 [place] x 3 Stroke Grandfather CAD (coronary artery disease) Cancer Father CAD (coronary artery disease), Onset Age: 60 Dementia Lung disease Grandmother Cancer Family/Other Diabetes Other Heart disease Hypercholesterolemia Hypertension Rheumatoid arthritis Denies family history of Clotting disorder Chronic kidney disease (CKD) Systemic lupus erythematosus (SLE) in adult Suicide Anesthesia complication Bleeding disorder Social History Smoking and tobacco/nicotine status: never used tobacco/nicotine Quit status (tobacco/nicotine): has tried quititng Second hand smoke exposure: No Alcohol intake: former Substance/Drug Use: unknown Adopted: No Caregiver/support person: No Lives independently: Yes Household members: other Details: partner Housing: House Marital status: Life Partner service: No Current occupational status: employed Pets and animals: Yes Do you think of yourself as: Lesbian/Carl/Homosexual Current gender identity: Female Physical Exam Narrative: EXAM NARRATIVE: General: Alert, no acute distress. Skin: warm and dry Head: Normocephalic Neck: Trachea midline Eye: Extraocular movements are intact. Ears, nose, mouth and throat: Oral mucosa moist, swelling and probable abscess above right molar upper. Swelling of the right cheek. Respiratory: Respirations are non-labored Musculoskeletal: Normal ROM Neurological: Alert and oriented, No focal neurological deficit observed. Psychiatric: Cooperative, appropriate mood & affect. Course Vital Signs: Vital signs: Vital Signs Temperature 97.9 F 03/16/24 09:28 Pulse Rate 73 03/16/24 09:28 Respiratory Rate 18 03/16/24 09:28 Blood Pressure 170/79 03/16/24 09:28 Pulse Oximetry 92 03/16/24 09:28 Oxygen Delivery Me thod Room Air 03/16/24 09:28 MDM - Dental/Oral Medical Decision Making Assessment and plan: Dental abscess, facial cellulitis -IV clindamycin 900 mg, 10 mg IV Decadron and 30 mg IV Toradol - Discharged home - Discussed findings and plan with patient. Answered any questions. - All laboratory values were reviewed and interpreted personally by myself, the ER physician - All imaging was reviewed and interpreted personally by myself, the ER physician. - Evaluation and treatment of this problem were appropriate in the emergency setting Lab Data 03/16/24 10:13 03/16/24 10:13 Laboratory Results WBC 14.91 10^3/uL (3.29-11.43) H 03/16/24 10:13 RBC 4.58 10^6/uL (3.85-5.65) 03/16/24 10:13 Hgb 12.80 g/dL (11.27-16.99) 03/16/24 10:13 Hct 40.7 % (36-47) 03/16/24 10:13 MCV 88.9 fl (85-98) 03/16/24 10:13 MCH 27.9 pg (27-33) 03/16/24 10:13 MCHC 31.4 g/dL (30-55) 03/16/24 10:13 RDW 14.7 % (12.1-15.1) 03/16/24 10:13 Plt Count 328 10^3/cmm (157-399) 03/16/24 10:13 MPV 9.8 fL (7.4-10.4) 03/16/24 10:13 Neut % (Auto) 80.6 % 03/16/24 10:13 Lymph % (Auto) 12.3 % 03/16/24 10:13 Bibb % (Auto) 5.6 % 03/16/24 10:13 Eos % (Auto) 0.9 % 03/16/24 10:13 Baso % (Auto) 0.3 % 03/16/24 10:13 Neut # (Auto) 12.04 10^3/uL (1.8-7.7) H 03/16/24 10:13 Lymph # (Auto) 1.8 10^3/uL (0.8-4.8) 03/16/24 10:13 Bibb # (Auto) 0.8 10^3/uL (0.2-0.9) 03/16/24 10:13 Eos # (Auto) 0.1 10^3/uL (0.0-0.8) 03/16/24 10:13 Baso # (Auto) 0.0 10^3/uL (0.0-0.1) 03/16/24 10:13 Nucleated RBC % (auto) 0 % 03/16/24 10:13 Nucleated RBCs # 0.0 /100WBC 03/16/24 10:13 Sodium 133 mmol/L (136-145) L 03/16/24 10:13 Potassium 4.0 mmol/L (3.5-5.1) 03/16/24 10:13 Chloride 95 mmol/L (98-107) L 03/16/24 10:13 Carbon Dioxide 26 mmol/L (22-29) 03/16/24 10:13 Anion Gap 16.0 (5-19) 03/16/24 10:13 BUN 19 mg/dL (6-20) 03/16/24 10:13 Creatinine 0.7 mg/dL (0.5-0.9) 03/16/24 10:13 GFR Calculation 87.2 mL/min (90-130) L 03/16/24 10:13 Glucose 162 mg/dL (65-115) H 03/16/24 10:13 Calculated Osmolality 282 mOsm/kg (285-295) L 03/16/24 10:13 Calcium 8.9 mg/dL (8.5-10.5) 03/16/24 10:13 Total Bilirubin 0.6 mg/dL (0.15-1.2) 03/16/24 10:13 AST 13 U/L (0-32) 03/16/24 10:13 ALT 11 U/L (0-33) 03/16/24 10:13 Alkaline Phosphatase 86 U/L (35-105) 03/16/24 10:13 Total Protein 7.0 g/dL (6.6-8.7) 03/16/24 10:13 Albumin 3.8 g/dL (3.5-5.2) 03/16/24 10:13 Globulin 3.2 g/dL (1.3-4.6) 03/16/24 10:13 No radiology studies performed this visit Discharge Plan Discharge Patient Disposition: Home Clinical Impression: Dental abscess Condition: Stable Prescriptions: New clindamycin HCl 300 mg capsule 600 mg PO Q8H 10 Days Qty: 60 0RF hydrocodone-acetaminophen 5-325 mg tablet 1 tab PO Q6H PRN (Reason: pain) Qty: 20 0RF dexamethasone 6 mg tablet 6 mg PO DAILY 5 Days Qty: 5 0RF Miralax 17 gram/dose powder 17 g PO DAILY Qty: 510 0RF Rx Instructions: Take 1 scoop daily while taking pain medications. No Action Lumigan 0.01 % drops 1 drop ophthalmic (eye) DAILY@1999 ascorbic acid (vitamin C) 1,000 mg tablet 1 g PO BID timolol maleate 0.25 % drops 1 drp ophthalmic (eye) BID B-complex with vitamin C Capsule 1 cap PO DAILY Slow-Mag 71.5 mg tablet,delayed release (DR/EC) 71.5 mg PO BID Celebrex 200 mg capsule 200 mg PO BID@, Qty: 60 5RF furosemide 40 mg tablet 40 mg PO DAILY@0900 Qty: 30 5RF tizanidine 4 mg capsule 4 mg PO TID PRN (Reason: muscle spasms) Qty: 90 5RF flecainide 50 mg tablet 100 mg PO Q12H alendronate [Fosamax] 70 mg tablet 70 mg PO .weekly 84 Days Qty: 12 3RF Hold Instructions: Patient No Longer Taking Rx Instructions: take on Wednesdays. pantoprazole 40 mg tablet,delayed release (DR/EC) See Rx Instructions .ROUTE .COMPLEX Qty: 90 1RF Hold Instructions: Patient No Longer Taking Dose Instruction: TAKE ONE TABLET BY MOUTH DAILY AT 9:00 a.m. Rx Instructions: TAKE ONE TABLET BY MOUTH DAILY AT 9:00 a.m. prednisone 5 mg tablet See Rx Instructions .ROUTE .COMPLEX Qty: 90 3RF Dose Instruction: TAKE THREE TABLETS (15MG) BY MOUTH EVERY DAY. TAKE WITH MEALS. Rx Instructions: TAKE 2 TABLETS (10MG) in AM Take 1 tablet (5mg) in PM Stelara 90 mg/mL syringe 90 mg SUBCUT .[id number] Qty: 1 1RF budesonide [Pulmicort] 0.5 mg/2 mL suspension for nebulization 0.5 mg inhalation BID Qty: 120 2RF albuterol sulfate 2.5 mg /3 mL (0.083 %) solution for nebulization 2.5 mg inhalation Q4H PRN (Reason: shortness of breath or wheezing) Qty: 300 2RF Eliquis 5 mg tablet 5 mg PO DAILY (DME) Disposable nebulizer circuit See Rx Instructions .ROUTE .MEDSUPPLY Qty: 1 2RF Rx Instructions: As directed Lagevrio (EUA) 200 mg capsule 800 mg PO Q12H 5 Days Qty: 40 0RF fluticasone propionate 50 mcg/actuation spray,suspension 2 spray INTRANASAL DAILY@0900 Qty: 15.8 5RF gabapentin 400 mg capsule 400 mg PO TID lidocaine HCl [Lidocaine Viscous] 2 % solution 5 ml mucous membrane QID 7 Days Qty: 100 0RF benzonatate 100 mg capsule 100 mg PO BID PRN (Reason: cough) Qty: 20 0RF [id number]-[id number] 3.5-10,000-1 mg/mL-unit/mL-% drops,suspension 4 drp otic (ear) TID 10 Days Qty: 10 0RF terconazole 0.8 % cream 1 appful vaginal BEDTIME Qty: 20 0RF nitrofurantoin monohyd/m-cryst [Macrobid] 100 mg capsule 100 mg PO BID 5 Days Qty: 10 0RF Rx Instructions: must administer with a meal/food (DME) cpap auto titration See Rx Instructions .Route .MEDSUPPLY Qty: 1 0RF Rx Instructions: As directed auto titrating cpap (6-20) with supplies 99 months, nitroglycerin 0.4 mg tablet, sublingual 0.4 mg sublingual Q5M PRN (Reason: chest pain) Qty: 25 3RF Rx Instructions: do not exceed 3 doses per episode albuterol sulfate [Ventolin HFA] 90 mcg/actuation HFA aerosol inhaler 2 puff INHALATION Q4H PRN (Reason: shortness of breath or wheezing) Qty: 18 2RF (DME) nebulizers Misc See Rx Instructions .ROUTE .MEDSUPPLY Qty: 1 0RF Rx Instructions: As directed ([facility]) pen needle, diabetic [Advocate Pen Needle] 31 gauge x 5/16 needle See Rx Instructions .ROUTE .MEDSUPPLY Qty: 400 3RF Rx Instructions: 4 daily (DME) Dexcom G6 Annealing Oven Operator Misc See Rx Instructions .Route Qty: 1 0RF Rx Instructions: Check BS 4-6 times a day. (DME) lancets [BD Ultra Fine Lancets] 33 gauge misc See Rx Instructions .Route Qty: 100 0RF Rx Instructions: As directed ([facility] [place]) Dexcom G6 Transmitter Device See Rx Instructions .ROUTE .COMPLEX Qty: 3 3RF Dose Instruction: CHANGE every 90 DAYS Rx Instructions: CHANGE every 90 DAYS amlodipine 5 mg tablet 5 mg PO DAILY Qty: 90 3RF valsartan 160 mg tablet 160 mg PO DAILY Qty: 90 3RF metformin 500 mg tablet extended release 24 hr See Rx Instructions .ROUTE .COMPLEX Qty: 360 0RF Dose Instruction: TAKE TWO TABLETS BY MOUTH TWICE DAILY Rx Instructions: TAKE TWO TABLETS BY MOUTH TWICE DAILY fluconazole 150 mg tablet 150 mg PO DAILY 1 Days Qty: 1 2RF Lipitor 20 mg tablet 20 mg PO DAILY@2000 Qty: 100 3RF chlorhexidine gluconate [Peridex] 0.12 % mouthwash 15 ml buccal BID Qty: 473 0RF tramadol 50 mg tablet 50 mg PO TID PRN (Reason: pain (scale score 7-10)) Qty: 90 0RF (DME) Dexcom G6 Sensor Device See Rx Instructions .ROUTE .COMPLEX Qty: 9 0RF Dose Instruction: CHANGE EVERY 10 DAYS DIRECTED Rx Instructions: CHANGE EVERY 10 DAYS DIRECTED insulin aspart U-100 [Novolog FlexPen U-100 Insulin] 100 unit/mL (3 mL) insulin pen 50 unit SUBCUT TIDWMEAL Qty: 30 0RF Tresiba FlexTouch U-200 200 unit/mL (3 mL) insulin pen See Rx Instructions .ROUTE .COMPLEX Qty: 72 0RF Dose Instruction: INJECT 155 UNITS SUBCUTANEOUSLY DAILY AT 9:00 a.m. Rx Instructions: INJECT 140 UNITS SUBCUTANEOUSLY DAILY AT 9:00 a.m. (DME) OneTouch Ultra Test Strip See Rx Instructions .ROUTE .COMPLEX Qty: 300 0RF Dose Instruction: USE 1 STRIP TO CHECK GLUCOSE THREE TIMES DAILY Rx Instructions: USE 1 STRIP TO CHECK GLUCOSE THREE TIMES DAILY Discharge Orders: Discharge ED (Routine); Ordered 03/16/24 Ordered By: Yael Ziegler Referrals: Chas Brown, METAL TEMPLATE MAKER-C [Primary Care Provider] - 4-7 days Discharge Diet: Advance as tolerated Discharge Activity: Increase activity as tolerated Patient Instructions: Dental Abscess (ED), Opioid Safety Activity Restrictions/Additional Instructions: Please follow-up with a dentist as soon as possible Thank you for choosing [facility] for your healthcare needs today. Please realize this is an emergency room and that we are providing you with a medical screening exam and this may not be complete and all inclusive of all the testing and or work up that you may need to determine your ailment or severity of your illness. You have been screened and evaluated and felt safe for discharge. Health conditions do change or evolve sometimes and as such it is important that you follow up with your Primary Doctor to be re checked, 3-5 days is a general good time frame for follow up. You are always welcome to return to the ED for re assessment if your symptoms are worsening or you have new concerns Coding Level of Care Code ED Roll Forming Machine Operator for Jennifer Mcfarlane
[2024-03-16 10:37] LABS: Alanine Aminotransferase 11 U/L (0-33); Albumin Level 3.8 g/dL (3.5-5.2); Alkaline Phosphatase 86 U/L (35-105); Aspartate Amino Transferase 13 U/L (0-32); Blood Urea Nitrogen 19 mg/dL (6-20); Calcium 8.9 mg/dL (8.5-10.5); Carbon Dioxide 26 mmol/L (22-29); Chloride 95 mmol/L (98-107); Globulin 3.2 g/dL (1.3-4.6); Glomerular Filtration Rate 87.2 mL/min (90-130); Glucose 162 mg/dL (65-115); Osmolality Calculated 282 mOsm/kg (285-295); Sodium 133 mmol/L (136-145); Total Bilirubin 0.6 mg/dL (0.15-1.2)
[2024-03-16] MEDS: clindamycin 900 MG/50 ML PREMIX 100 MG IV (11:20)
[2024-03-16] MEDS: ketorolac 30 mg/mL INJ IVP (11:20)
[2024-03-16] MEDS: dexamethasone 10 mg/mL INJ IVP (11:20)
[2024-03-16 12:31] VITALS: BP 154/82; PULSE 68; RESP 16; TEMP 36.6; O2SAT 95
== END 2024-03-16 12:32 | disposition home or self-care (01) ==
PROVIDERS: Family Medicine; Emergency Provider Emergency Medicine; PCP Nurse Practitioner
DX: K04.7 Periapical abscess without sinus (principal)
CPT/HCPCS: 36415; 80053; 85025; 96365; 96375; 99284; J1100; J1885; J3490

== ENCOUNTER → 2024-04-07 13:21 | Outpatient (BNVA) | payer MEDICARE, MEDICAID, SELFPAY | PROVIDERS: PCP Nurse Practitioner; Visit Provider Internal Medicine Cardiovascular Disease | DX: R06.00 Dyspnea, unspecified; R06.02 Shortness of breath | CPT/HCPCS: 36415; 80048; 83880; 99214 ==

== ENCOUNTER → 2024-05-07 15:18 | Outpatient (BNVA) | payer MEDICARE, MEDICAID, SELFPAY | PROVIDERS: PCP Nurse Practitioner; Visit Provider Nurse Practitioner Family | DX: R39.9 Unspecified symptoms and signs involving the genitourinary system (principal) | CPT/HCPCS: 81000; 87070; 87205 ==

== ENCOUNTER → 2024-05-23 11:38 | Outpatient (BNVA) | payer MEDICARE, MEDICAID, SELFPAY | PROVIDERS: PCP Nurse Practitioner; Visit Provider Internal Medicine | DX: Z79.899 Other long term (current) drug therapy (principal); E11.65 Type 2 diabetes mellitus with hyperglycemia; Z79.4 Long term (current) use of insulin; E78.2 Mixed hyperlipidemia; E11.29 Type 2 diabetes mellitus with other diabetic kidney complication; R80.9 Proteinuria, unspecified; E11.40 Type 2 diabetes mellitus with diabetic neuropathy, unspecified; D89.9 Disorder involving the immune mechanism, unspecified; E04.1 Nontoxic single thyroid nodule; Z79.84 Long term (current) use of oral hypoglycemic drugs | CPT/HCPCS: 99214 ==

== ENCOUNTER → 2024-06-10 14:49 | Outpatient (BNVA) | payer MEDICARE, MEDICAID, SELFPAY | PROVIDERS: PCP Nurse Practitioner; Visit Provider Internal Medicine Rheumatology | DX: M46.90 Unspecified inflammatory spondylopathy, site unspecified (principal); Z79.899 Other long term (current) drug therapy; Z15.89 Genetic susceptibility to other disease; Z71.85 Encounter for immunization safety counseling; K50.90 Crohn's disease, unspecified, without complications; M12.811 Other specific arthropathies, not elsewhere classified, right shoulder | CPT/HCPCS: 99214 ==

== ENCOUNTER → 2024-08-12 10:49 | Outpatient (BNVA) | payer MEDICARE, MEDICAID, SELFPAY | PROVIDERS: PCP Nurse Practitioner; Visit Provider Internal Medicine Cardiovascular Disease | DX: I47.29 Other ventricular tachycardia (principal); R94.31 Abnormal electrocardiogram [ECG] [EKG]; I48.92 Unspecified atrial flutter; R07.9 Chest pain, unspecified | CPT/HCPCS: 93005; 99214 ==

== ENCOUNTER → 2024-09-23 11:41 | Outpatient (BNVA) | payer MEDICARE, MEDICAID, SELFPAY | PROVIDERS: PCP Nurse Practitioner; Visit Provider Internal Medicine | DX: R06.00 Dyspnea, unspecified (principal); R09.02 Hypoxemia; K50.919 Crohn's disease, unspecified, with unspecified complications; Z79.899 Other long term (current) drug therapy; E11.29 Type 2 diabetes mellitus with other diabetic kidney complication; R80.9 Proteinuria, unspecified; E11.40 Type 2 diabetes mellitus with diabetic neuropathy, unspecified; E11.65 Type 2 diabetes mellitus with hyperglycemia; E78.2 Mixed hyperlipidemia; D89.9 Disorder involving the immune mechanism, unspecified; E04.1 Nontoxic single thyroid nodule; Z79.4 Long term (current) use of insulin; Z79.84 Long term (current) use of oral hypoglycemic drugs | CPT/HCPCS: 99214 ==

== ENCOUNTER → 2024-11-18 12:58 | Outpatient (BNVA) | payer MEDICARE, MEDICAID, SELFPAY | PROVIDERS: PCP Nurse Practitioner; Visit Provider Emergency Medicine | DX: R50.9 Fever, unspecified (principal) | CPT/HCPCS: 87400; 87426 ==

== ENCOUNTER → 2024-12-23 15:11 | Outpatient (BNVA) | payer MEDICARE, MEDICAID, SELFPAY | PROVIDERS: PCP Nurse Practitioner; Visit Provider Nurse Practitioner | DX: I10 Essential (primary) hypertension (principal); E55.9 Vitamin D deficiency, unspecified; E11.29 Type 2 diabetes mellitus with other diabetic kidney complication; R80.9 Proteinuria, unspecified; M79.669 Pain in unspecified lower leg; E78.2 Mixed hyperlipidemia; E11.40 Type 2 diabetes mellitus with diabetic neuropathy, unspecified; E11.65 Type 2 diabetes mellitus with hyperglycemia; Z79.899 Other long term (current) drug therapy | CPT/HCPCS: 80053; 80061; 82043; 82306; 83036 ==

== ENCOUNTER → 2024-12-25 10:50 | Outpatient (BNVA) | payer MEDICARE, MEDICAID, SELFPAY | PROVIDERS: PCP Nurse Practitioner; Visit Provider Internal Medicine | DX: Z79.899 Other long term (current) drug therapy (principal); E11.65 Type 2 diabetes mellitus with hyperglycemia; Z79.4 Long term (current) use of insulin; E78.2 Mixed hyperlipidemia; E11.29 Type 2 diabetes mellitus with other diabetic kidney complication; R80.9 Proteinuria, unspecified; E11.40 Type 2 diabetes mellitus with diabetic neuropathy, unspecified; D89.9 Disorder involving the immune mechanism, unspecified; E04.1 Nontoxic single thyroid nodule; K50.919 Crohn's disease, unspecified, with unspecified complications; R06.00 Dyspnea, unspecified; R09.02 Hypoxemia | CPT/HCPCS: 99214 ==

== ENCOUNTER 2025-03-11 14:17 | Outpatient (CLI) | payer MEDICARE, MEDICAID, SELFPAY | END 2025-03-11 14:18 | disposition home or self-care (01) | LOC: LAB 03-18 12:25 | PROVIDERS: PCP Nurse Practitioner; Visit Provider Internal Medicine | DX: Z79.899 Other long term (current) drug therapy (principal); E11.65 Type 2 diabetes mellitus with hyperglycemia; Z79.4 Long term (current) use of insulin; E78.2 Mixed hyperlipidemia | CPT/HCPCS: 80053; 80061; 82043; 83036 ==

== ENCOUNTER → 2025-03-26 11:06 | Outpatient (BNVA) | payer MEDICARE, MEDICAID, SELFPAY | PROVIDERS: PCP Nurse Practitioner; Visit Provider Internal Medicine Rheumatology | DX: M46.90 Unspecified inflammatory spondylopathy, site unspecified (principal); Z15.89 Genetic susceptibility to other disease; Z79.52 Long term (current) use of systemic steroids; Z71.89 Other specified counseling; M81.0 Age-related osteoporosis without current pathological fracture | CPT/HCPCS: 99214 ==

== ENCOUNTER 2025-04-02 13:30 | Outpatient (CLI) | payer MEDICARE, MEDICAID, SELFPAY ==
--- NOTE | 2025-04-02 13:38 | XR_ITS ---
WS: [id number] XR hand RT min 3V* [id number] REASON FOR EXAM: M79.641 - Pain in right hand FINDINGS: No fracture or focal bone lesion. No periosteal reaction or bone erosion. Mild joint space narrowing with mild subchondral sclerosis and osteophytosis in the DIP joints of the second through the fifth fingers. Similar arthropathic change in the PIP joint of the fifth finger. Similar, somewhat more severe arthropathy in the 3 joints of the thumb. XR/XR hand RT min 3V* [id number] IMPRESSION: Mild to moderate osteoarthritis as above.
--- NOTE | 2025-04-02 13:38 | XR_ITS ---
WS: [id number] XR wrist RT min 3V* [id number] REASON FOR EXAM: M79.641 - Pain in right hand FINDINGS: Osteoarthritis in the right hand as described in the report on the examination of the right hand. No fracture or focal bone lesion. No erosion or periosteal reaction. The joint spaces of the wrist are intact and well preserved. XR/XR wrist RT min 3V* [id number] IMPRESSION: No significant bone or joint abnormality.
== END 2025-04-02 13:31 | disposition home or self-care (01) ==
LOC: LAB 13:34
PROVIDERS: PCP Nurse Practitioner; Visit Provider Internal Medicine
DX: M19.041 Primary osteoarthritis, right hand (principal); M25.531 Pain in right wrist; E78.2 Mixed hyperlipidemia; R09.02 Hypoxemia; R06.00 Dyspnea, unspecified; E04.1 Nontoxic single thyroid nodule; E11.29 Type 2 diabetes mellitus with other diabetic kidney complication; R39.9 Unspecified symptoms and signs involving the genitourinary system; R80.9 Proteinuria, unspecified; E11.40 Type 2 diabetes mellitus with diabetic neuropathy, unspecified; E11.65 Type 2 diabetes mellitus with hyperglycemia; D89.9 Disorder involving the immune mechanism, unspecified; K50.919 Crohn's disease, unspecified, with unspecified complications
CPT/HCPCS: 36415; 73110; 73130; 81000; 84439; 84443; 87077; 87086; 87184

== ENCOUNTER 2025-04-07 13:10 | Outpatient (CLI) | payer MEDICARE, MEDICAID, SELFPAY ==
[2025-04-07 15:11] LABS: Hepatitis B Core AB, Total Non-Reactive (Nonreactive); Hepatitis B Surface Antigen Non-Reactive (Nonreactive)
[2025-04-07 15:31] LABS: Hepatitis C Virus Antibody Non-Reactive (Nonreactive)
[2025-04-10 07:26] LABS: Quantiferon Mitogen >10.00 IU/mL; Quantiferon Nil 0.01 IU/mL; Quantiferon TB Gold NEGATIVE (NEGATIVE)
== END 2025-04-07 13:11 | disposition home or self-care (01) ==
PROVIDERS: PCP Nurse Practitioner; Visit Provider Internal Medicine Rheumatology
DX: Z79.899 Other long term (current) drug therapy (principal)
CPT/HCPCS: 36415; 86480; 86704; 86803; 87340

== ENCOUNTER 2025-05-05 15:36 | Outpatient (CLI) | payer MEDICARE, MEDICAID, SELFPAY ==
[2025-05-05 17:11] LABS: Alanine Aminotransferase 13 U/L (0-33); Albumin Level 4.1 g/dL (3.5-5.2); Alkaline Phosphatase 79 U/L (35-105); Anion Gap 17.5 (5-19); Aspartate Amino Transferase 11 U/L (0-32); Blood Urea Nitrogen 21 mg/dL (6-20); Calcium 9.5 mg/dL (8.5-10.5); Carbon Dioxide 26 mmol/L (22-29); Chloride 97 mmol/L (98-107); Globulin 3.1 g/dL (1.3-4.6); Glucose 137 mg/dL (65-115); Osmolality Calculated 287 mOsm/kg (285-295); Potassium 4.5 mmol/L (3.5-5.1); Sodium 136 mmol/L (136-145); Total Protein 7.2 g/dL (6.6-8.7)
== END 2025-05-05 15:37 | disposition home or self-care (01) ==
LOC: LAB 15:39
PROVIDERS: PCP Nurse Practitioner; Visit Provider Internal Medicine Rheumatology
DX: Z79.899 Other long term (current) drug therapy (principal)
CPT/HCPCS: 36415; 80053; 82085; 82550; 85651; 86140

== ENCOUNTER → 2025-05-13 13:01 | Outpatient (BNVA) | payer MEDICARE, MEDICAID, SELFPAY | PROVIDERS: PCP Nurse Practitioner; Visit Provider Internal Medicine Rheumatology | DX: M46.90 Unspecified inflammatory spondylopathy, site unspecified (principal); Z15.89 Genetic susceptibility to other disease; Z71.85 Encounter for immunization safety counseling | CPT/HCPCS: 99215 ==

== ENCOUNTER → 2025-07-23 10:40 | Outpatient (BNVA) | payer MEDICARE, MEDICAID, SELFPAY | PROVIDERS: PCP Nurse Practitioner; Visit Provider Internal Medicine | DX: E11.21 Type 2 diabetes mellitus with diabetic nephropathy (principal); E11.65 Type 2 diabetes mellitus with hyperglycemia; E11.40 Type 2 diabetes mellitus with diabetic neuropathy, unspecified; Z79.899 Other long term (current) drug therapy; D84.9 Immunodeficiency, unspecified; E04.1 Nontoxic single thyroid nodule; E78.2 Mixed hyperlipidemia; K50.919 Crohn's disease, unspecified, with unspecified complications; R06.09 Other forms of dyspnea; R09.02 Hypoxemia | CPT/HCPCS: 99214 ==

== ENCOUNTER 2025-09-29 13:57 | Outpatient (CLI) | payer MEDICARE, MEDICAID, SELFPAY ==
[2025-09-29 14:50] LABS: Anion Gap 15.2 (5-19); Blood Urea Nitrogen 16 mg/dL (6-20); Calcium 9.4 mg/dL (8.5-10.5); Carbon Dioxide 31 mmol/L (22-29); Chloride 99 mmol/L (98-107); Glucose 112 mg/dL (65-115); Osmolality Calculated 294 mOsm/kg (285-295); Potassium 4.2 mmol/L (3.5-5.1); Sodium 141 mmol/L (136-145)
== END 2025-09-29 13:58 | disposition home or self-care (01) ==
LOC: LAB 14:01
PROVIDERS: PCP Nurse Practitioner; Visit Provider Nurse Practitioner
DX: I10 Essential (primary) hypertension (principal)
CPT/HCPCS: 36415; 80048

== ENCOUNTER → 2025-10-14 15:57 | Outpatient (BNVA) | payer MEDICARE, MEDICAID, SELFPAY | PROVIDERS: PCP Nurse Practitioner; Visit Provider Nurse Practitioner | DX: E61.1 Iron deficiency (principal); E55.9 Vitamin D deficiency, unspecified; I10 Essential (primary) hypertension | CPT/HCPCS: 80048; 82306; 83550 ==

== ENCOUNTER → 2025-10-27 14:50 | Outpatient (BNVA) | payer MEDICARE, MEDICAID, SELFPAY | PROVIDERS: PCP Nurse Practitioner; Visit Provider Internal Medicine Rheumatology | DX: M45.9 Ankylosing spondylitis of unspecified sites in spine (principal); Z15.89 Genetic susceptibility to other disease; Z71.85 Encounter for immunization safety counseling; Z79.899 Other long term (current) drug therapy | CPT/HCPCS: 99215 ==